=== PATIENT | male | born 1950 | race Caucasian/White ===

== ENCOUNTER 2017-11-14 06:45 | Day surgery (SDC) | END 2017-11-15 17:05 | disposition home or self-care (01) ==

== ENCOUNTER 2018-09-16 08:40 | Day surgery (SDC) | payer OTHER ==
[2018-09-16] VITALS (18 sets, daily range): BP systolic 105–125; BP diastolic 55–76; PULSE 60–78; RESP 11–18; Ht 170.2 cm; Wt 69.2 kg
[~2018-09-16] VITALS: Ht 170.2 cm; Wt 69.2 kg
[~2018-09-16 08:40] MED LIST: APIX5TAB PO; ASPI81TA52 PO; BENA20TA4 PO; CARV25TA79 PO; DIGO125T93 PO; FURO-110 PO; INSU100I33 SC; METF500T24 PO; NAPR-985 PO; NITR0.4T39 SL; NOVO3I SC; OMEP20CA16 PO; SEVOFLURANE 15 MIN ONE; SIMV40TA2 PO
[2018-09-16] MEDS ORDERED: CIPROFLOXACIN 400MG/D5W 200 ML IVPB ONE (09:00)
[2018-09-16] MEDS ORDERED: KETO5DRO22 OP (09:10)
[2018-09-16] MEDS ORDERED: TRAM50TA PO (09:10)
[2018-09-16] MEDS ORDERED: TICA90TA PO (09:10)
[2018-09-16] MEDS ORDERED: LACT10SO5 PO (09:10)
[2018-09-16] MEDS ORDERED: DEXT1DRO7 OP (09:10)
[2018-09-16] MEDS ORDERED: SUCCINYLCHOLINE CHLORIDE 100 MG/5 ML SYG IV ONE (11:35)
[2018-09-16] MEDS ORDERED: ROCURONIUM 50 MG INJ ONE (11:35)
[2018-09-16] MEDS ORDERED: LIDOCAINE 2% (SDV) 5 ML INJ ONE (11:35)
[2018-09-16] MEDS ORDERED: PROPOFOL 20 ML ONE (11:35)
[2018-09-16] MEDS ORDERED: NEOSTIGMINE 3 MG/3 ML SYRINGE ONE ×2 (11:35→11:40)
[2018-09-16] MEDS ORDERED: GLYCOPYRROLATE 0.4 MG INJ ONE ×2 (11:35→11:40)
--- NOTE | 2018-09-16 12:37 | HPN ---
Date/Time of Note Date/Time of Note DATE: 09/16/18 TIME: 12:37 Interval H&P Admission Note Pt. seen H&P reviewed: No system changes REILLY SNIDER Sep 16, 2018 12:37
--- NOTE | 2018-09-16 12:58 | RADRPT ---
Vent Rate: 62 bpm RR Interval: 973 msec MI Interval: 61 msec QRS Duration: 114 msec QT Interval: 463 msec QTC Interval: 469 msec P-R-T Mascot: 0 - -18 - 212 degrees A-V dual-paced complexes w/ some inhibition...other complexes also detected No further analysis attempted due to paced rhythm Electronically Signed By: Markel Avila
--- NOTE | 2018-09-16 12:59 | PREAC ---
Date/Time of Note Date/Time of Note DATE: 09/16/18 TIME: 12:59 Anesthesia Eval and Record Evaluation Time Pre-Procedure Interview DATE: 09/16/18 TIME: 12:59 Age 68 Sex male NPO: 8 hrs Preoperative diagnosis Left kidney stone Planned procedure Cystoscopy, left ureteral stent removal, left retrograde pyelogram, left uret eroscopy with Laser lithotripsy, left ureteral stent insertion Past Medical History Past Medical History: Includes Cardio: HTN, Dyslipidemia, CAD, PTCA/Stent, PPM/AICD Endo: Diabetes Surgery & Anesthesia Issues No known issue Meds Anticoagulation: No Beta Benita within 24 hr: Yes Reported Medications Lactulose* (Lactulose*) 10 Gm/15 Ml Solution, 10 GM PO Q8, ML 09/16/18 Ticagrelor* (Brilinta*) 90 Mg Tablet, 90 MG PO Q12, TAB 09/16/18 Dextran 70/Hypromellose/Pf (ARTIFICIAL TEARS DROPS) 1 Each Droperette, 1 EACH OP TID PRN for DRY EYES 09/16/18 Ketotifen Fumarate (KETOTIFEN FUMARATE) 5 Ml Drops, 1 ML OP QID PRN for ITCHING, BOTTLE 09/16/18 Tramadol Hcl* (Ultram*) 50 Mg Tablet, 50 MG PO Q6H PRN for PAIN, TAB 09/16/18 Insulin Glargine,Hum.rec.anlog (Basaglar Kwikpen U-100) 100 Unit/1 Ml Insuln.pen, 20 UNIT SC QHS, EA 11/14/17 Insulin Aspart* (Novolog Insulin Pen*) 100 Unit/Ml Soln, 10-11 UNIT SC WITH MEALS, EA 11/14/17 Benazepril Hcl* (Benazepril Hcl*) 20 Mg Tablet, 20 MG PO DAILY, #30 TAB 11/14/17 Nitroglycerin* (Nitrostat*) 0.4 Mg Tab.subl, 0.4 MG SL Q5MIN PRN for CHEST PAIN, BOTTLE 11/14/17 Furosemide* (Lasix*) 20 Mg Tablet, 20 MG PO DAILY, TAB 11/14/17 Omeprazole* (Omeprazole*) 20 Mg Capsule.dr, 20 MG PO DAILY, #30 CAP 11/14/17 Digoxin* (Lanoxin*) 0.125 Mg Tablet, 0.125 MG PO DAILY, TAB 11/14/17 Naproxen* (Naprosyn*) 500 Mg Tablet, 500 MG PO BID PRN for PAIN AND/OR INFLAMMATION, TAB 11/14/17 Aspirin (Low Dose Aspirin) 81 Mg Tablet.dr, 81 MG PO DAILY, #30 TAB 11/14/17 Carvedilol* (Carvedilol*) 25 Mg Tablet, 25 MG PO BID, #60 TAB 11/14/17 Metformin Hcl* (Metformin Hcl*) 500 Mg Tablet, 500 MG PO WITH BREAKFAST DINNE, #60 TAB 11/14/17 Discontinued Reported Medications Apixaban* (Eliquis*) 5 Mg Tablet, 5 MG PO BID, TAB 11/14/17 Simvastatin* (Zocor*) 40 Mg Tablet, 40 MG PO QHS, #30 TAB 11/14/17 Meds reviewed: Yes Allergies Coded Allergies: No Known Allergy (Unverified , 09/16/18) Allergies Reviewed: Yes Labs/Studies Labs Reviewed: Reviewed by anesthesiologist test: N/A Pre-procedure Exam Last vitals Vital Signs Date Temp Pulse Resp B/P (MAP) Pulse Ox O2 O2 Flow FiO2 Time Delivery Rate 09/16/18 97.6 68 16 106/55 98 Room Air 08:43 (72) Airway: Adequate mouth opening Mallampati: Mallampati I Teeth: Abnormal (Only a few teeth left) Lung: Normal Heart: Normal ASA Physical Status ASA physical status: 3 Emergency: None Planned Anesthetic General/MAC: ETT Planned Pain Management Parenteral pain med Pre-operative Attestations Prior to commencing anesthesia and surgery, the patient was re-evaluated, there was verification of: *The patient's identity *The results of appropriate recent lab work and preoperative vital signs *The above evaluation not changing prior to induction *Anesthetic plan, risk benefits, alternative and complications discussed with patient/family; questions answered; patient/family understands, accepts and wishes to proceed. CATHY THORPE MD Sep 16, 2018 12:59
[2018-09-16] MEDS ORDERED: IOHEXOL 300MG/ML 30 ML BTL INJ ONE (13:48)
--- NOTE | 2018-09-16 14:21 | PDOCDIS ---
Discharge Instructions DIAGNOSIS Discharge Diagnosis Left kidney stone CONDITION Mckenzie Patient Condition: Kenji Good HOME CARE INSTRUCTIONS: Mckenzie Diet Instructions: Kenji Reduced Calorie ACTIVITY: Mckenzie Activity Restrictions: Kenji Slowly Increase Activity Mckenzie Bathing Restrictions: Kenji Shower FOLLOW UP/APPOINTMENTS Follow-up Plan Call office to make appointment for removal of stent next week REFERRALS Mckenzie Referring Provider: REILLY Stein EVAN Sep 16, 2018 14:21
--- NOTE | 2018-09-16 14:25 | OPR ---
Date/Time of Note Date/Time of Note DATE: 09/16/18 TIME: 14:23 Operative Report Procedure Date: Sep 16, 2018 Preoperative Diagnosis left renal calculi Postoperative Diagnosis same Operation/Procedure Performed exchange left stent, left nephroscopy with endoscopic holmium laser lithotripsy Surgeon maria luisa Caster Operator none Anesthesia Type: general Estimated Blood Loss: none Transfusion none Specimen none Grafts/Implants none Tubes/Drains 22 cm 4.8 f stent Complications none Pt Condition Post Procedure: stable Disposition: PACU Indications stone Procedure Description dict [id number] REILLY SNIDER Sep 16, 2018 14:25
[2018-09-16] MEDS ORDERED: IOHEXOL 300MG/ML 30 ML BTL ONE (14:28)
[2018-09-16] MEDS ORDERED: HYDROmorphONE 1 MG/5 ML IV SYRINGE IV PRN ×2 (15:00)
[2018-09-16] MEDS ORDERED: MEPERIDINE 25 MG INJ IV PRN (15:00)
[2018-09-16] MEDS ORDERED: EPHEDrine SULFATE 50 MG/5 ML SYG IV PRN (15:00)
[2018-09-16] MEDS ORDERED: hydrALAzine 20 MG INJ IV PRN (15:00)
[2018-09-16] MEDS ORDERED: MIDAZOLAM 1 MG/ML 2 ML INJ IV PRN (15:00)
[2018-09-16] MEDS ORDERED: FENTAnyl 50 MCG/ML VIAL IV PRN ×3 (15:00)
[2018-09-16] MEDS ORDERED: ONDANSETRON 4 MG INJ IV PRN (15:00)
[2018-09-16] MEDS ORDERED: METOCLOPRAMIDE 10 MG INJ IV PRN (15:00)
[2018-09-16] MEDS ORDERED: OXYCODONE/ACETAMINOPHEN (5/325) TAB PO PRN ×2 (15:00)
[2018-09-16] MEDS ORDERED: DIPHENHYDRAMINE 50 MG INJ IV PRN (15:00)
[2018-09-16] MEDS ORDERED: LABETALOL HCL 20MG INJ IV PRN (15:00)
[2018-09-16] MEDS: HYDROmorphONE 1 MG/5 ML IV SYRINGE IV PRN ×2 (15:15→15:24)
--- NOTE | 2018-09-16 16:05 | PAC ---
Date/Time of Note Date/Time of Note DATE: 09/16/18 TIME: 16:05 Post-Anesthesia Notes Post-Anesthesia Note Last documented vital signs Vital Signs Date Temp Pulse Resp B/P (MAP) Pulse Ox O2 O2 Flow FiO2 Time Delivery Rate 09/16/18 119/74 97 Room Air 15:39 (89) 09/16/18 12 15:17 09/16/18 62 15:09 09/16/18 98.3 14:37 Activity: WNL Respiratory function: WNL Cardiovascular function: WNL Mental status: Baseline Pain reasonably controlled: Yes Hydration appropriate: Yes Nausea/Vomiting absent: Yes CATHY THORPE MD Sep 16, 2018 16:05
--- NOTE | 2018-09-16 18:46 | OPR ---
DATE OF OPERATION: 09/16/2018 PREOPERATIVE DIAGNOSIS: Left nephrolithiasis. POSTOPERATIVE DIAGNOSIS: Left nephrolithiasis. PROCEDURES: Cystoscopy, removal of left ureteral stent, left endoscopic nephroscopy with endoscopic holmium laser lithotripsy, insertion of left ureteral stent. SURGEON: Slava Zarate MD ANESTHESIA: General. COMPLICATIONS: None. FINDINGS: Stone burden in the left mid pole and left lower pole. COMPLICATIONS: None. DRAINS: A 22 cm 4.8-[place] double-J ureteral stent. PROCEDURE IN DETAILS: The patient was brought into the operating room and placed on the operating ta ble in the supine lithotomy position. He was prepped and draped in the usual fashion after anesthesi a was induced. A timeout was undertaken. Appropriate pressure points were padded. He received preo perative antibiotic therapy and sequential compression devices were applied. A KUB was obtained whic h demonstrated the previously placed left ureteral stent to be in proper anatomical position. There was stone burden in the left mid pole and left lower pole. Utilizing the rigid cystoscope, a cystosc opy was undertaken. No abnormalities of the anterior or posterior urethra could be appreciated. Pro truding from the left ureteral orifice was a left stent with an attached string. The bladder was ins pected in a systematic fashion. No other foreign body could be appreciated. There was no bladder st one or tumor. Thus utilizing the graspers, a stent was brought up to the level of the urethral meatu s, which allowed for wire to be placed up to the level of the upper pole. The stent and string were removed intact without any noted difficulty. A dual lumen catheter was then placed over the wire and a retrograde pyelogram was undertaken demonstrating stone burden in the mid pole and left lower pole . A secondary wire was then placed up to the level of the upper pole which then allowed for the digi inessa Olympus ureteroscope was easily inserted into the renal pelvis. One of the wires was removed and the secondary wire was maintained throughout the entire case as a safety guidewire. The kidney was then evaluated in a systematic fashion. The upper pole was within normal limits without any noted st one burden within the renal pelvis. Erythema could be appreciated in the mid pole. A stone was iden tified and utilizing a 272 micron holmium fiber with a setting of 0.8 joules and 8 Hz. The stone was easily fragmented. No further stone burden could be appreciated. In the lower pole, 2 calyces coul d be appreciated in the most lower pole along the infundibulum was noted with erythema and in the inf erior portion of this, conglomerate stone burden could be appreciated. With gentle manipulation, the ureteroscope was inserted into the most inferior aspect of the stone where endoscopic holmium laser lithotripsy was continued until no further stone burden could be appreciated. The stone was associat ed with complex of clot and debris consistent with previous surgery. A total of 232 joules were util ized at which point no further stone burden could be appreciated. Once again, the entire collecting system including the upper mid and lower pole as well as renal pelvis were evaluated with no further stone burden being appreciated. The ureteroscope was removed under direct vision in a retrograde fas hion and overlying the wire, a 22 cm 4.8-[place] double-J ureteral stent was inserted in the proximal aspect of coil within the renal pelvis and the distal aspect of coil in the bladder. Attached the di stal end was a pursestring. Proper positioning was confirmed with direct vision fluoroscopy and a KU B. His bladder was emptied and transferred to recovery room in stable condition. He will follow up in the office next week for cystoscopy and stent removal. Importance of timely removal of stent in l ess than 3 months has been explained to the patient on multiple occasions to avoid encrustation compl ications. He tolerated the procedure well and will be discharged home on [place] 5/325 one tab p.o. q. 6 hours p.r.n., dispense #25 and Pyridium 100 mg p.o. t.i.d. p.r.n., dispense #30, one refill. Dictated By: SLAVA VILLAFUERTE/NTS Conf#: [id number] DID#: [id number]
== END 2018-09-16 17:00 | disposition home or self-care (01) ==
LOC: SDS 08:40
PROVIDERS: ATTEND Urology
DX: N20.0 Calculus of kidney (principal); I10 Essential (primary) hypertension; I25.10 Atherosclerotic heart disease of native coronary artery without angina pectoris; E11.9 Type 2 diabetes mellitus without complications; E78.5 Hyperlipidemia, unspecified
CPT/HCPCS: 52356; 74430; 82962; 93005; C2617; J0744; J1170; Q9967; J2710

== ENCOUNTER 2018-09-26 16:10 | Inpatient (IN) | payer OTHER ==
[~2018-09-26] VITALS: Ht 170.2 cm; Wt 67.5 kg
[~2018-09-26 16:10] MED LIST changes: -APIX5TAB PO; +DEXT1DRO7 OP; +KETO5DRO22 OP; +LACT10SO5 PO; -SEVOFLURANE 15 MIN ONE; -SIMV40TA2 PO; +TICA90TA PO; +TRAM50TA PO
--- NOTE | 2018-09-26 19:46 | ERD ---
ER Documentation Chief Complaint Chief Complaint pacemaker battery needs to be replaced HPI 68-year-old gentleman history of hypertension, coronary disease, pacemaker and defibrillator who presents to the emergency room with a vibrating sensation in his pacemaker. Patient denies being shocked. This was noted in triage but I believe this was a language barrier misunderstanding. He states this was not a defibrillation but only a vibration. Occasionally is having some diaphoresis and nausea with these events. Patient denies any chest pressure, no pleuritic pain no fevers or chills. ROS All systems reviewed and are negative except as per history of present illness. Medications Home Meds Reported Medications Lactulose* (Lactulose*) 10 Gm/15 Ml Solution, 10 GM PO Q8, ML 09/16/18 Ticagrelor* (Brilinta*) 90 Mg Tablet, 90 MG PO Q12, TAB 09/16/18 Dextran 70/Hypromellose/Pf (ARTIFICIAL TEARS DROPS) 1 Each Droperette, 1 EACH OP TID PRN for DRY EYES 09/16/18 Ketotifen Fumarate (KETOTIFEN FUMARATE) 5 Ml Drops, 1 ML OP QID PRN for ITCHING, BOTTLE 09/16/18 Tramadol Hcl* (Ultram*) 50 Mg Tablet, 50 MG PO Q6H PRN for PAIN, TAB 09/16/18 Insulin Glargine,Hum.rec.anlog (Basaglar Kwikpen U-100) 100 Unit/1 Ml Insuln.pen, 20 UNIT SC QHS, EA 11/14/17 Insulin Aspart* (Novolog Insulin Pen*) 100 Unit/Ml Soln, 10-11 UNIT SC WITH MEALS, EA 11/14/17 Benazepril Hcl* (Benazepril Hcl*) 20 Mg Tablet, 20 MG PO DAILY, #30 TAB 11/14/17 Nitroglycerin* (Nitrostat*) 0.4 Mg Tab.subl, 0.4 MG SL Q5MIN PRN for CHEST PAIN, BOTTLE 11/14/17 Furosemide* (Lasix*) 20 Mg Tablet, 20 MG PO DAILY, TAB 11/14/17 Omeprazole* (Omeprazole*) 20 Mg Capsule.dr, 20 MG PO DAILY, #30 CAP 11/14/17 Digoxin* (Lanoxin*) 0.125 Mg Tablet, 0.125 MG PO DAILY, TAB 11/14/17 Naproxen* (Naprosyn*) 500 Mg Tablet, 500 MG PO BID PRN for PAIN AND/OR INFLAMMATION, TAB 11/14/17 Aspirin (Low Dose Aspirin) 81 Mg Tablet.dr, 81 MG PO DAILY, #30 TAB 11/14/17 Carvedilol* (Carvedilol*) 25 Mg Tablet, 25 MG PO BID, #60 TAB 11/14/17 Metformin Hcl* (Metformin Hcl*) 500 Mg Tablet, 500 MG PO WITH BREAKFAST DINNE, #60 TAB 11/14/17 Allergies Allergies: Coded Allergies: No Known Allergy (Unverified , 09/26/18) PMhx/Soc History of Surgery: Yes (AICD PLACEMENT, CARDIAC STENTS X3, URETERAL STENTS) Anesthesia Reaction: No Hx Neurological Disorder: No Hx Respiratory Disorders: No Hx Cardiac Disorders: Yes (HTN, AK, HYPERLIPIDEMIA) Hx Psychiatric Problems: No Hx Miscellaneous Medical Probl: Yes (DM) Hx Alcohol Use: No Hx Substance Use: No Hx Tobacco Use: No Smoking Status: Never smoker FmHx Family History: No diabetes Physical Exam Vitals Vital Signs Date Temp Pulse Resp B/P (MAP) Pulse Ox O2 O2 Flow FiO2 Time Delivery Rate 09/26/18 98.6 66 18 119/69 99 Nasal 2.0 21:50 (86) Cannula 09/26/18 98.6 66 16 128/66 98 Nasal 2.0 20:55 (86) Cannula 09/26/18 Nasal 2 19:00 Cannula 09/26/18 66 16 141/73 99 Nasal 2.0 19:00 (95) Cannula 09/26/18 98.6 82 17 119/63 100 16:27 (81) Physical Exam General: Well developed, well nourished, no acute distress Head: Normocephalic, atraumatic. Eyes: Pupils equally reactive, EOM intact ENT: Moist mucous membranes Neck: Supple, no lymphadenopathy Respiratory: Lungs clear bilaterally, no distress Cardiovascular: RRR, no murmurs, rubs, or gallops Abdominal: Soft, non-tender, non-distended, no peritoneal signs : Deferred MSK: No edema, no unilateral swelling, 5/5 strength Neurologic: Alert and oriented, moving all extremities, normal speech, no focal weakness, no cerebellar signs Skin: No rash Psych: Normal mood Result Diagram: 09/26/18192009/26/181920 Results 24 hrs Laboratory Tests Test 09/26/18 19:21 White Blood Count 8.1 10^3/ul Red Blood Count 4.03 10^6/ul Hemoglobin 12.1 g/dl Hematocrit 36.8 % Mean Corpuscular Volume 91.3 fl Mean Corpuscular Hemoglobin 30.0 pg Mean Corpuscular Hemoglobin Concent 32.9 g/dl Red Cell Distribution Width 13.6 % Platelet Count 219 10^3/UL Mean Platelet Volume 9.9 fl Immature Granulocytes % 0.400 % Neutrophils % 51.4 % Lymphocytes % 30.1 % Monocytes % 9.4 % Eosinophils % 7.8 % Basophils % 0.9 % Nucleated Red Blood Cells % 0.0 /100WBC Immature Granulocytes # 0.030 10^3/ul Neutrophils # 4.1 10^3/ul Lymphocytes # 2.4 10^3/ul Monocytes # 0.8 10^3/ul Eosinophils # 0.6 10^3/ul Basophils # 0.1 10^3/ul Nucleated Red Blood Cells # 0.0 10^3/ul Prothrombin Time 13.3 Sec Prothrombin Time Ratio 1.0 INR International Normalized Ratio 1.00 Activated Partial Thromboplast Time 32.3 Sec Sodium Level 141 mmol/L Potassium Level 4.3 mmol/L Chloride Level 107 mmol/L Carbon Dioxide Level 26 mmol/L Anion Gap 8 Blood Urea Nitrogen 20 mg/dl Creatinine 1.13 mg/dl Est Glomerular Filtrat Rate mL/min > 60 mL/min Glucose Level 140 mg/dl Calcium Level 10.1 mg/dl Magnesium Level 2.0 mg/dl Troponin I < 0.012 ng/ml Current Medications Medications Dose Sig/Gato Start Time Status Last (Trade) Ordered Route PRN Stop Time Admin Dose Reason Admin Aspirin 81 mg ONCE ONCE 09/26/18 DC (Aspirin) PO 21:30 09/26/18 21:31 Ondansetron 4 mg ER BRIDGE 09/26/18 HCl (Zofran PRN IV 21:30 Inj) NAUSEA/VOMITI 09/27/18 21:29 NG 650 mg ER BRIDGE 09/26/18 Acetaminophen PRN PO 21:30 (Tylenol .MILD PAIN 09/27/18 21:29 Tab) 1-3 OR TEMP IV Flush 3 ml PER 09/26/18 (NS 3 ml) PROTOCOL IV 22:00 Ondansetron 4 mg Q6H PRN 09/26/18 HCl (Zofran IV 22:00 Inj) NAUSEA/VOMITI NG Morphine 2 mg Q4H PRN 09/26/18 Sulfate IV .PAIN 22:00 (morphine) 7-10 Famotidine 20 mg Q12 IV 09/27/18 (Pepcid Iv) 09:00 Enoxaparin 30 mg DAILY SC 09/27/18 Sodium 09:00 (Lovenox) Procedures/MDM EKG, MONITORS, & DIAGNOSTIC IMAGING: EKG: I reviewed and interpreted a 12-lead EKG. Rhythm: Paced rhythm ST Changes: No contiguous ST segment elevations T waves: No contiguous T wave inversions Impression: [No evidence of acute cardiac ischemia] Repeat EKG: EKG: I reviewed and interpreted a 12-lead EKG. Rhythm: Paced rhythm ST Changes: No contiguous ST segment elevations T waves: No contiguous T wave inversions Impression: [No evidence of acute cardiac ischemia] Chest x-ray: I reviewed and interpreted a 1 view of the chest Mediastinum: No enlargement Cardiac silhouette: No cardiomegaly Airspace: Clear lung devi bilaterally without evidence of pneumothorax Bones: No evidence of fracture PROCEDURES: [None] LAB INTERPRETATION: * Negative troponin MEDICAL DECISION MAKING: The patient's history, physical exam and clinical presentation is concerning for possible cardiac arrhythmia. The patient requires pacemaker interrogation, possibly battery change. No active chest pain. Based on the patient's clinical exam and history and risk factors, I have a much lower clinical concern for pulmonary embolism, acute aortic dissection, pneumothorax, pneumonia, cardiac tamponade I have reached out to the patient's deep sea diver Dr. Waldron. I have reached out to [facility]. Given the patient's description of diaphoresis and nausea with this I believe hospitalization for observation would be appropriate. ER COURSE: * Aspirin provided. * Dr. Schneider has called back and agrees with admission. CONSULTATION: [employer] as documented above DISPOSITION PLAN: Accepting care team and consultations: I discussed the current laboratory data, diagnostic imaging and emergency care provided. Admitting team: Dr. Harrell Admitting team indication: Insurance directed Departure Diagnosis: Primary Impression: Palpitations Condition: Stable ZION WILKINSON MD Sep 26, 2018 19:46
[2018-09-26] MEDS ORDERED: ASPIRIN 81 MG TAB PO ONE (21:30)
[2018-09-26] MEDS ORDERED: ACETAMINOPHEN 325 MG TAB PO PRN (21:30)
[2018-09-26] MEDS ORDERED: ONDANSETRON 4 MG INJ IV PRN ×2 (21:30→22:00)
[2018-09-26] MEDS ORDERED: morphine 2 MG INJ IV PRN (22:00)
[2018-09-26] MEDS ORDERED: NACL 0.9% 3 ML SYG IV SCH (22:00)
[2018-09-26 22:15] VITALS: Ht 170.2 cm; Wt 67.5 kg
[2018-09-26 22:25] VITALS: PULSE 60
[2018-09-26 23:33] VITALS: BP 134/69; PULSE 82; RESP 18
[2018-09-27] VITALS (12 sets, daily range): BP systolic 108–117; BP diastolic 56–65; PULSE 55–78; RESP 17–20
[2018-09-27] MEDS: FAMOTIDINE 20 MG INJ IV SCH ×2 (10:05→20:38)
[2018-09-27] MEDS: ENOXAPARIN 30 MG/0.3 ML SYG SC SCH (10:10)
--- NOTE | 2018-09-27 11:04 | CONS ---
Consultation Date/Type/Reason Admit Date/Time Sep 26, 2018 at 21:18 Type of Consult Cardiology Date/Time of Note DATE: 09/27/18 TIME: 11:03 Hx of Present Illness 68 yo - my office pt - has [facility] BiV ICD - will need gen change - EL device - will try to schedule early next week when anesthesia available - thank you # [id number] Past Medical History Home Meds Reported Medications Lactulose* (Lactulose*) 10 Gm/15 Ml Solution, 10 GM PO Q8, ML 09/16/18 Ticagrelor* (Brilinta*) 90 Mg Tablet, 90 MG PO Q12, TAB 09/16/18 Dextran 70/Hypromellose/Pf (ARTIFICIAL TEARS DROPS) 1 Each Droperette, 1 EACH OP TID PRN for DRY EYES 09/16/18 Ketotifen Fumarate (KETOTIFEN FUMARATE) 5 Ml Drops, 1 ML OP QID PRN for ITCHING, BOTTLE 09/16/18 Tramadol Hcl* (Ultram*) 50 Mg Tablet, 50 MG PO Q6H PRN for PAIN, TAB 09/16/18 Insulin Glargine,Hum.rec.anlog (Basaglar Kwikpen U-100) 100 Unit/1 Ml Insuln.pen, 20 UNIT SC QHS, EA 11/14/17 Insulin Aspart* (Novolog Insulin Pen*) 100 Unit/Ml Soln, 10-11 UNIT SC WITH MEALS, EA 11/14/17 Benazepril Hcl* (Benazepril Hcl*) 20 Mg Tablet, 20 MG PO DAILY, #30 TAB 11/14/17 Nitroglycerin* (Nitrostat*) 0.4 Mg Tab.subl, 0.4 MG SL Q5MIN PRN for CHEST PAIN, BOTTLE 11/14/17 Furosemide* (Lasix*) 20 Mg Tablet, 20 MG PO DAILY, TAB 11/14/17 Omeprazole* (Omeprazole*) 20 Mg Capsule.dr, 20 MG PO DAILY, #30 CAP 11/14/17 Digoxin* (Lanoxin*) 0.125 Mg Tablet, 0.125 MG PO DAILY, TAB 11/14/17 Naproxen* (Naprosyn*) 500 Mg Tablet, 500 MG PO BID PRN for PAIN AND/OR INFLAMMATION, TAB 11/14/17 Aspirin (Low Dose Aspirin) 81 Mg Tablet.dr, 81 MG PO DAILY, #30 TAB 11/14/17 Carvedilol* (Carvedilol*) 25 Mg Tablet, 25 MG PO BID, #60 TAB 11/14/17 Metformin Hcl* (Metformin Hcl*) 500 Mg Tablet, 500 MG PO WITH BREAKFAST DINNE, #60 TAB 11/14/17 Medications Current Medications Ondansetron HCl (Zofran Inj) 4 mg ER BRIDGE PRN IV NAUSEA/VOMITING; Start 09/26/18 at 21:30; Stop 09/27/18 at 21:29 Acetaminophen (Tylenol Tab) 650 mg ER BRIDGE PRN PO .MILD PAIN 1-3 OR TEMP; Start 09/26/18 at 21:30; Stop 09/27/18 at 21:29 IV Flush (NS 3 ml) 3 ml PER PROTOCOL IV ; Start 09/26/18 at 22:00 Ondansetron HCl (Zofran Inj) 4 mg Q6H PRN IV NAUSEA/VOMITING; Start 09/26/18 at 22:00 Morphine Sulfate (morphine) 2 mg Q4H PRN IV .PAIN 7-10; Start 09/26/18 at 22:00 Famotidine (Pepcid Iv) 20 mg Q12 IV Last administered on 09/27/18at 10:05; Admin Dose 20 MG; Start 09/27/18 at 09:00 Enoxaparin Sodium (Lovenox) 30 mg DAILY SC Last administered on 09/27/18at 10:10; Admin Dose 30 MG; Start 09/27/18 at 09:00 Allergies: Coded Allergies: No Known Allergy (Unverified , 09/26/18) Social History Smoking Status: Never smoker Exam/Review of Systems Vital Signs Vitals Vital Signs Date Temp Pulse Resp B/P (MAP) Pulse Ox O2 O2 Flow FiO2 Time Delivery Rate 09/27/18 98.8 67 20 108/60 98 08:08 (76) 09/26/18 Nasal 2.0 21:50 Cannula Intake and Output 09/26/18 09/26/18 09/27/18 1515:00 23:00 07:00 IntakeIntake Total 450 ml BalanceBalance 450 ml Labs Result Diagram: 09/26/18192009/26/181920 Results 24hrs Laboratory Tests Test 09/26/18 19:21 09/26/18 22:29 09/27/18 00:48 White Blood Count 8.1 Red Blood Count 4.03 L Hemoglobin 12.1 L Hematocrit 36.8 L Mean Corpuscular Volume 91.3 Mean Corpuscular Hemoglobin 30.0 Mean Corpuscular Hemoglobin Concent 32.9 Red Cell Distribution Width 13.6 Platelet Count 219 Mean Platelet Volume 9.9 Immature Granulocytes % 0.400 Neutrophils % 51.4 Lymphocytes % 30.1 Monocytes % 9.4 Eosinophils % 7.8 H Basophils % 0.9 Nucleated Red Blood Cells % 0.0 Immature Granulocytes # 0.030 Neutrophils # 4.1 Lymphocytes # 2.4 Monocytes # 0.8 Eosinophils # 0.6 H Basophils # 0.1 Nucleated Red Blood Cells # 0.0 Prothrombin Time 13.3 Prothrombin Time Ratio 1.0 INR International Normalized Ratio 1.00 Activated Partial Thromboplast Time 32.3 Sodium Level 141 Potassium Level 4.3 Chloride Level 107 Carbon Dioxide Level 26 Anion Gap 8 Blood Urea Nitrogen 20 Creatinine 1.13 Est Glomerular Filtrat Rate mL/min > 60 Glucose Level 140 Calcium Level 10.1 Magnesium Level 2.0 Troponin I < 0.012 < 0.012 Bedside Glucose 135 Creatine Kinase 58 Creatine Kinase Index 1.7 Creatinine Kinase MB (Mass) 1.00 Medications Medications Current Medications Ondansetron HCl (Zofran Inj) 4 mg ER BRIDGE PRN IV NAUSEA/VOMITING; Start 09/26/18 at 21:30; Stop 09/27/18 at 21:29 Acetaminophen (Tylenol Tab) 650 mg ER BRIDGE PRN PO .MILD PAIN 1-3 OR TEMP; Start 09/26/18 at 21:30; Stop 09/27/18 at 21:29 IV Flush (NS 3 ml) 3 ml PER PROTOCOL IV ; Start 09/26/18 at 22:00 Ondansetron HCl (Zofran Inj) 4 mg Q6H PRN IV NAUSEA/VOMITING; Start 09/26/18 at 22:00 Morphine Sulfate (morphine) 2 mg Q4H PRN IV .PAIN 7-10; Start 09/26/18 at 22:00 Famotidine (Pepcid Iv) 20 mg Q12 IV Last administered on 09/27/18at 10:05; Admin Dose 20 MG; Start 09/27/18 at 09:00 Enoxaparin Sodium (Lovenox) 30 mg DAILY SC Last administered on 09/27/18at 10:10; Admin Dose 30 MG; Start 09/27/18 at 09:00 VANE OSUNA MD Sep 27, 2018 11:04
[2018-09-27] MEDS ORDERED: DEXTROSE 50% 50 ML SYRINGE IV PRN ×2 (12:00)
[2018-09-27] MEDS ORDERED: GLUCOSE GEL 15 GRAM TUBE PO PRN ×2 (12:00)
[2018-09-27] MEDS ORDERED: GLUCAGON 1 MG INJ IM PRN (12:00)
[2018-09-27] MEDS ORDERED: GLUCOSE GEL 15 GRAM TUBE BUCCAL PRN (12:00)
--- NOTE | 2018-09-27 12:16 | HP ---
Date/Time of Note Date/Time of Note DATE: 09/27/18 TIME: 12:14 Assessment/Plan VTE Pro[place]axis [place] [facility] [place]: 3 [place]CD [place] [facility] [place] No SCD contraindicated: other Pharmacological prophylaxis: LMWH Lines/Catheters IV [facility]ter Type (from [facility] Saline Lock Urinary Cath still in place: No Assessment/Plan Hospital Course 1) arrhythmia - pacemaker to be changed per cardiology 2) diabetes - monitor blood sugar Result Diagram: 09/27/18 1038 09/27/18 1038 Results 24hrs Laboratory Tests Test 09/26/18 19:21 09/26/18 22:29 09/27/18 00:48 09/27/18 10:38 White Blood Count 8.1 6.8 Red Blood Count 4.03 L 3.90 L Hemoglobin 12.1 L 11.8 L Hematocrit 36.8 L 35.8 L Mean Corpuscular 91.3 91.8 Volume Mean Corpuscular 30.0 30.3 Hemoglobin Mean Corpuscular 32.9 33.0 Hemoglobin Concent Red Cell 13.6 13.8 Distribution Width Platelet Count 219 198 Mean Platelet Volume 9.9 10.4 Immature 0.400 0.300 Granulocytes % Neutrophils % 51.4 52.9 Lymphocytes % 30.1 31.1 Monocytes % 9.4 9.2 Eosinophils % 7.8 H 5.6 Basophils % 0.9 0.9 Nucleated Red Blood 0.0 0.0 Cells % Immature 0.030 0.020 Granulocytes # Neutrophils # 4.1 3.6 Lymphocytes # 2.4 2.1 Monocytes # 0.8 0.6 Eosinophils # 0.6 H 0.4 Basophils # 0.1 0.1 Nucleated Red Blood 0.0 0.0 Cells # Prothrombin Time 13.3 Prothrombin Time 1.0 Ratio INR International 1.00 Normalized Ratio Activated 32.3 Partial Thromboplast Time Sodium Level 141 140 Potassium Level 4.3 4.9 Chloride Level 107 103 Carbon Dioxide Level 26 28 Anion Gap 8 9 Blood Urea Nitrogen 20 18 Creatinine 1.13 0.77 Est Glomerular > 60 > 60 Filtrat Rate mL/min Glucose Level 140 147 Calcium Level 10.1 9.6 Magnesium Level 2.0 Troponin I < 0.012 < 0.012 < 0.012 Bedside Glucose 135 Creatine Kinase 58 48 Creatine Kinase 1.7 1.3 Index Creatinine Kinase MB 1.00 0.64 (Mass) Hemoglobin A1c 7.3 H Total Bilirubin 0.5 Direct Bilirubin 0.00 Indirect Bilirubin 0.5 Aspartate Amino 21 Transf (AST/SGOT) Alanine 29 Aminotransferase (AL T/SGPT) Alkaline Phosphatase 73 Total Protein 6.6 Albumin 3.9 Globulin 2.70 Albumin/Globulin 1.44 Ratio Test 09/27/18 11:43 Bedside Glucose 154 HPI/ROS Admit Date/Time Admit Date/Time Sep 26, 2018 at 21:18 Hx of Present Illness Patient with hypertension, diabetes, cardiac arrhythmia s/p pacemaker placement is here because of vibrations from pacemaker. He is admitted for further evaluation. PMH/Family/Social Past Medical History Medical History: coronary artery disease, diabetes, high cholesterol, hypert ension Medications Current Medications Ondansetron HCl (Zofran Inj) 4 mg ER BRIDGE PRN IV NAUSEA/VOMITING; Start 09/26/18 at 21:30; Stop 09/27/18 at 21:29 Acetaminophen (Tylenol Tab) 650 mg ER BRIDGE PRN PO .MILD PAIN 1-3 OR TEMP; Start 09/26/18 at 21:30; Stop 09/27/18 at 21:29 IV Flush (NS 3 ml) 3 ml PER PROTOCOL IV ; Start 09/26/18 at 22:00 Ondansetron HCl (Zofran Inj) 4 mg Q6H PRN IV NAUSEA/VOMITING; Start 09/26/18 at 22:00 Morphine Sulfate (morphine) 2 mg Q4H PRN IV .PAIN 7-10; Start 09/26/18 at 22:00 Famotidine (Pepcid Iv) 20 mg Q12 IV Last administered on 09/27/18at 10:05; Admin Dose 20 MG; Start 09/27/18 at 09:00 Enoxaparin Sodium (Lovenox) 30 mg DAILY SC Last administered on 09/27/18at 10:10; Admin Dose 30 MG; Start 09/27/18 at 09:00 Coded Allergies: No Known Allergy (Unverified , 09/26/18) Family History Significant Family History: no pertinent family hx Social History Smoking Status: Never smoker Exam/Review of Systems Vital Signs Vitals Vital Signs Date Temp Pulse Resp B/P (MAP) Pulse Ox O2 O2 Flow FiO2 Time Delivery Rate 09/27/18 98.2 55 20 109/61 97 11:14 (77) 4/20/19 Nasal 2.0 21:50 Cannula Intake and Output 09/26/18 09/26/18 09/27/18 1515:00 23:00 07:00 IntakeIntake Total 450 ml BalanceBalance 450 ml Exam Constitutional: well developed Head: normocephalic, atraumatic Neck: supple Respiratory: clear to auscultation Cardiovascular: regular rate and rhythm Gastrointestinal: soft, non-tender Extremities: normal pulses TENISHA TAMAYO Sep 27, 2018 12:16
[2018-09-27] MEDS ORDERED: NAPROXEN 500 MG TAB PO PRN (12:30)
[2018-09-27] MEDS ORDERED: NITROGLYCERIN (SL) 0.4 MG TAB SL PRN (12:30)
[2018-09-27] MEDS ORDERED: traMADol 50 MG TAB PO PRN (12:30)
--- NOTE | 2018-09-27 13:31 | CONS ---
DATE OF ADMISSION: 09/26/2018 DATE OF CONSULTATION: 09/27/2018 TYPE OF CONSULTATION: Cardiology. REFERRING PHYSICIAN: Ekaterina Tamayo MD REASON FOR EVALUATION: End of life on ICD. HISTORY OF PRESENT ILLNESS: Mr. rC is a 68-year-old gentleman with history of hypertension, dysl ipidemia, history of cardiomyopathy, history of biventricular ICD implanted several years ago who is my office patient, who comes in for evaluation of his ICD. His ICD has known end of life. He was fowler pposed to have scheduled appointment for ICD replacement, but the patient represented to the hospital now and will have to change his ICD during this admission. Currently, the patient is hemodynamicall y stable condition. His ICD is with biventricular pacing. Based on laboratory data, it does not wilner ear that he ruled in for acute myocardial infarction. For now, conservative therapy is expected. We will facilitate ICD change hopefully early next week once schedule is available. There is a possibi lity the patient might need a temporary pacemaker. He is aware of the need of ICD change, so we can facilitate it shortly. PAST MEDICAL HISTORY: 1. Hypertension. 2. Dyslipidemia. 3. History of cardiomyopathy. 4. History of biventricular ICD. 5. History of recent surgery. ALLERGIES: NO KNOWN DRUG ALLERGIES. SOCIAL HISTORY: The patient does not smoke, does not drink, does not use drugs. FAMILY HISTORY: Negative for sudden cardiac , premature coronary artery disease. MEDICATIONS: 1. Famotidine 20 mg daily. 2. Enoxaparin. 3. Ondansetron. 4. Morphine sulfate. 5. Aspirin, which was held for unclear reason. REVIEW OF SYSTEMS: CONSTITUTIONAL: No fevers, no chills. Blunting of the ICD. HEENT: No changes in vision or hearing. CARDIAC: Chest pain reported now. RESPIRATORY: Short of breath, chronic. GASTROINTESTINAL: No nausea, vomiting, diarrhea, constipation. GENITOURINARY: No dysuria or hematuria. NEUROLOGIC: No focal deficits. HEMATOLOGIC: No easy bruising. PSYCHIATRIC: No history of psychiatric illness. PHYSICAL EXAMINATION: VITAL SIGNS: Temperature is 98.8, heart rate 67, blood pressure 108/60. GENERAL: He is a thin gentleman in no acute distress, alert and oriented x3, aware of his condition. HEENT: Head is normocephalic, atraumatic. Eyes are anicteric. NECK: Supple. JVD is 6 to 7 cm. There is no lymphadenopathy. HEART: Regular, soft holosystolic murmur. PMI is minimally displaced. ICD site appears ____ at the base. ABDOMEN: Distended. Bowel sounds are present. No hepatosplenomegaly. GENITOURINARY: Intact. EXTREMITIES: Show cyanosis, clubbing or edema. LABORATORY DATA: Sodium 141, potassium 4.3, BUN is 5, creatinine 1.1. ____ 10.1. Troponin is negat ren at 0.012. INR is 1.0. His white blood cell count 8.1, hemoglobin 12.1, platelets 219. ASSESSMENT AND PLAN: 1. End of life ICD. The patient with end of life ICD. Generally, battery change is expected. The patient was supposed to have it done as an outpatient, but presented here now. I think it is safe to do the battery change while the patient is here in the hospital. We will facilitate it shortly and we will hopefully schedule for early next week. 2. Hypertension. Blood pressure is well controlled. Continue to adjust medications as needed. 3. History of cardiomyopathy. The patient is not in congestive heart failure on my examination. We will continue to monitor. We will see if we can interrogate his ICD at this stage to see if he has an underlying rhythm. 4. Anemia. Hemoglobin is fairly stable. No evidence of bleeding now. 5. Chest pain. The patient did not rule in for ischemia. Troponins are negative. Medical followup to follow. Dictated By: VANE OSUNA MD ML/NTS Conf#: [id number] DID#: [id number] CC: EKATERINA TAMAYO MD;*EndCC*
[2018-09-27] MEDS: LACTULOSE 30ML CUP PO SCH ×2 (14:12→21:05)
[2018-09-27] MEDS: DIGOXIN 0.125 MG TAB PO SCH (14:13)
[2018-09-27] MEDS: metFORMIN 500 MG TAB PO SCH (17:22)
[2018-09-27] MEDS: INSULIN ASPART [NOVOLOG] 3 ML PEN SC SCH (17:25)
[2018-09-27] MEDS: ACCU-CHEK XX SCH ×2 (17:25→21:00)
[2018-09-27] MEDS ORDERED: INSULIN GLARGINE [LANTus] (100 UNITS/ML) SYG SC SCH ×2 (21:00)
[2018-09-27] MEDS ORDERED: INSULIN GLARGINE [LANtus] 3 ML PEN SC SCH (21:00)
[2018-09-27] MEDS: TICAGRELOR 90 MG TABLET PO SCH (21:22)
[2018-09-27] MEDS: INSULIN GLARGINE [LANTus] (100 UNITS/ML) SYG SC SCH (21:22)
[2018-09-28] VITALS (10 sets, daily range): BP systolic 100–121; BP diastolic 56–77; PULSE 60–82; RESP 18–20
[2018-09-28] MEDS: LACTULOSE 30ML CUP PO SCH ×3 (05:49→20:31)
[2018-09-28] MEDS: ACCU-CHEK XX SCH ×4 (07:12→20:30)
[2018-09-28] MEDS: INSULIN ASPART [NOVOLOG] 3 ML PEN SC SCH ×3 (08:00→17:27)
[2018-09-28] MEDS: ASPIRIN (EC) 81 MG TAB PO SCH (08:25)
[2018-09-28] MEDS: FAMOTIDINE 20 MG INJ IV SCH ×2 (08:25→20:29)
[2018-09-28] MEDS: FUROSEMIDE 20 MG TAB PO SCH (08:26)
[2018-09-28] MEDS: BENAZEPRIL 20 MG TAB PO SCH (08:27)
[2018-09-28] MEDS: TICAGRELOR 90 MG TABLET PO SCH ×2 (08:37→21:10)
[2018-09-28] MEDS: ENOXAPARIN 30 MG/0.3 ML SYG SC SCH (08:37)
[2018-09-28] MEDS: metFORMIN 500 MG TAB PO SCH ×2 (08:38→16:42)
--- NOTE | 2018-09-28 10:51 | CONS ---
Assessment/Plan Assessment/Plan Hospital Course (Demo Recall) IMP: 1. ICD and EOL=awaiting generator change by primary EP DR conn. Tenatively scheduled for tomorrow 2.cardiomyopathy with low EF 3.HTN 4.chest pain-resolved. Neg trops 5.DM Recc: -Tele -serial ecg's -Continue ACEI/BB -Continue brilinta/asa -NPO after MN in preparation -check echo to assess EF Consultation Date/Type/Reason Admit Date/Time Sep 26, 2018 at 21:18 Initial Consult Date Type of Consult Cardiology Reason for Consultation ICD/cardiomyopathy Date/Time of Note DATE: 09/28/18 TIME: 10:43 Exam/Review of Systems Vital Signs Vitals Vital Signs Date Temp Pulse Resp B/P (MAP) Pulse Ox O2 O2 Flow FiO2 Time Delivery Rate 09/28/18 78 10:11 09/28/18 98.1 20 119/63 98 07:25 (81) 09/26/18 Nasal 2.0 21:50 Cannula Intake and Output 09/27/18 09/27/18 09/28/18 1515:00 23:00 07:00 IntakeIntake Total 800 ml 500 ml BalanceBalance 800 ml 500 ml Exam Exam Review of Systems: CONSTITUTIONAL: No fevers, chills. PULMONARY: No sob CARDIOVASCULAR: No chest pain/palpitations GASTROINTESTINAL: No nausea/vomiting. GENITOURINARY: No hematuria/dysuria. MUSCULOSKELETAL: No myagias/arthalgias. PSYCHIATRIC: The patient denies depression. NEUROLOGIC: No weakness Constitutional: alert, oriented Psych: no complaints Head: normocephalic ENMT: mucosa pink and moist Neck: supple, jvd (9 cm water) Respiratory: clear to auscultation Cardiovascular: regular rate and rhythm Gastrointestinal: soft, non-tender Musculoskeletal: muscle tone (normal) Extremities: edema (none) Neurological: other (No focal deficits) Labs Result Diagram: 09/27/18 1038 09/27/18 1038 Results 24hrs Laboratory Tests Test 09/27/18 11:43 09/27/18 17:17 09/27/18 21:01 09/28/18 07:12 Bedside Glucose 154 198 160 115 Medications Medications Current Medications IV Flush (NS 3 ml) 3 ml PER PROTOCOL IV ; Start 09/26/18 at 22:00 Ondansetron HCl (Zofran Inj) 4 mg Q6H PRN IV NAUSEA/VOMITING; Start 09/26/18 at 22:00 Morphine Sulfate (morphine) 2 mg Q4H PRN IV .PAIN 7-10; Start 09/26/18 at 22:00 Famotidine (Pepcid Iv) 20 mg Q12 IV Last administered on 09/28/18 08:25; Admin Dose 20 MG; Start 09/27/18 at 09:00 Enoxaparin Sodium (Lovenox) 30 mg DAILY SC Last administered on 09/28/18 08:37; Admin Dose 30 MG; Start 09/27/18 at 09:00 Aspirin (Halfprin) 81 mg DAILY PO Last administered on 09/28/18 08:25; Admin Dose 81 MG; Start 09/28/18 at 09:00 Benazepril HCl (Lotensin) 20 mg DAILY PO Last administered on 09/28/18 08:27; Admin Dose 20 MG; Start 09/28/18 at 09:00 Carvedilol (Coreg) 25 mg BID PO Last administered on 09/28/18 08:27; Admin Dose 25 MG; Start 09/27/18 at 21:00 Digoxin (Digoxin) 0.125 mg DAILY@1300 PO Last administered on 09/27/18 14:13; Admin Dose 0.125 MG; Start 09/27/18 at 13:00 Furosemide (Lasix) 20 mg DAILY PO Last administered on 09/28/18 08:26; Admin Dose 20 MG; Start 09/28/18 at 09:00 Insulin Aspart (Novolog Insulin Pen) 10 unit WITH MEALS SC Last administered on 09/27/18 17:25; Admin Dose 10 UNIT; Start 09/27/18 at 18:00 Lactulose (Enulose) 10 gm Q8 PO Last administered on 09/28/18 05:49; Admin Dose 10 GM; Start 09/27/18 at 14:00 Metformin HCl (Glucophage) 500 mg WITH BREAKFAST DINNE PO Last administered on 09/28/18 08:38; Admin Dose 500 MG; Start 09/27/18 at 18:00 Naproxen (Naprosyn) 500 mg BID PRN PO PAIN AND/OR INFLAMMATION; Start 09/27/18 at 12:30 Nitroglycerin (Nitroglycerin (Sl Tab) 0.4 Mg) 1 tab [id number] PRN SL CHEST PAIN; Start 09/27/18 at 12:30 Ticagrelor (Brilinta) 90 mg Q12 PO Last administered on 09/28/18at 08:37; Admin Dose 90 MG; Start 09/27/18 at 21:00 Tramadol HCl (Ultram) 50 mg Q6H PRN PO PAIN; Start 09/27/18 at 12:30 Diagnostic Test (Pha) (Accu-Chek) 1 ea AC MEALS AND BEDTIME XX Last administ ered on 09/28/18at 07:12; Admin Dose 1 EA; Start 09/27/18 at 17:30 Miscellaneous Information 1 ea NOTE XX ; Start 09/27/18 at 12:00 Glucose (Glutose) 15 gm Q15M PRN PO DECREASED GLUCOSE; Start 09/27/18 at 12:00 Glucose (Glutose) 22.5 gm Q15M PRN PO DECREASED GLUCOSE; Start 09/27/18 at 12:00 Dextrose (D50w Syringe) 25 ml Q15M PRN IV DECREASED GLUCOSE; Start 09/27/18 at 12:00 Dextrose (D50w Syringe) 50 ml Q15M PRN IV DECREASED GLUCOSE; Start 09/27/18 at 12:00 Glucagon (Glucagen) 1 mg Q15M PRN IM DECREASED GLUCOSE; Start 09/27/18 at 12:00 Glucose (Glutose) 15 gm Q15M PRN BUCCAL DECREASED GLUCOSE; Start 09/27/18 at 12:00 Insulin Glargine (Lantus) 20 units QHS SC Last administered on 09/27/18at 21:22; Admin Dose 20 UNITS; Start 09/27/18 at 21:00 ROGELIO ARMENTA Sep 28, 2018 10:51
--- NOTE | 2018-09-28 12:54 | PN ---
Date/Time of Note Date/Time of Note DATE: 09/28/18 TIME: 12:54 Assessment/Plan VTE Prophylaxis Risk score (from [facility])>0 risk: 2 SCD applied (from Ns): Yes Pharmacological prophylaxis: LMWH Lines/Catheters IV Catheter Type (from Nrsg): Saline Lock Urinary Cath still in place: No Assessment/Plan Hospital Course 1) arrhythmia - pacemaker to be changed per cardiology 2) diabetes - monitor blood sugar Result Diagram: 09/27/18 1038 09/27/18 1038 Results 24hrs Laboratory Tests Test 09/27/18 17:17 09/27/18 21:01 09/28/18 07:12 09/28/18 11:38 Bedside Glucose 198 160 115 127 Subjective 24 Hr Interval Summary Free Text/Dictation Currently no vibrations from pacemaker Exam/Review of Systems Exam Vitals Vital Signs Date Temp Pulse Resp B/P (MAP) Pulse Ox O2 O2 Flow FiO2 Time Delivery Rate 09/28/18 98.5 70 20 100/61 100 11:31 (74) 09/26/18 Nasal 2.0 21:50 Cannula Intake and Output 09/27/18 09/27/18 09/28/18 1515:00 23:00 07:00 IntakeIntake Total 800 ml 500 ml BalanceBalance 800 ml 500 ml Constitutional: well developed Head: normocephalic, atraumatic Neck: supple Respiratory: diminished breath sounds Cardiovascular: regular rate and rhythm Gastrointestinal: soft, non-tender Extremities: normal pulses Results Results 24hrs Laboratory Tests Test 09/27/18 17:17 09/27/18 21:01 09/28/18 07:12 09/28/18 11:38 Bedside Glucose 198 160 115 127 Medications Medication Current Medications IV Flush (NS 3 ml) 3 ml PER PROTOCOL IV ; Start 09/26/18 at 22:00 Ondansetron HCl (Zofran Inj) 4 mg Q6H PRN IV NAUSEA/VOMITING; Start 09/26/18 at 22:00 Morphine Sulfate (morphine) 2 mg Q4H PRN IV .PAIN 7-10; Start 09/26/18 at 22:00 Famotidine (Pepcid Iv) 20 mg Q12 IV Last administered on 09/28/18at 08:25; Admin Dose 20 MG; Start 09/27/18 at 09:00 Enoxaparin Sodium (Lovenox) 30 mg DAILY SC Last administered on 09/28/18 08:37; Admin Dose 30 MG; Start 09/27/18 at 09:00 Aspirin (Halfprin) 81 mg DAILY PO Last administered on 09/28/18 08:25; Admin Dose 81 MG; Start 09/28/18 at 09:00 Benazepril HCl (Lotensin) 20 mg DAILY PO Last administered on 09/28/18 08:27; Admin Dose 20 MG; Start 09/28/18 at 09:00 Carvedilol (Coreg) 25 mg BID PO Last administered on 09/28/18 08:27; Admin Dose 25 MG; Start 09/27/18 at 21:00 Digoxin (Digoxin) 0.125 mg DAILY@1300 PO Last administered on 09/27/18 14:13; Admin Dose 0.125 MG; Start 09/27/18 at 13:00 Furosemide (Lasix) 20 mg DAILY PO Last administered on 09/28/18 08:26; Admin Dose 20 MG; Start 09/28/18 at 09:00 Insulin Aspart (Novolog Insulin Pen) 10 unit WITH MEALS SC Last administered on 09/27/18 17:25; Admin Dose 10 UNIT; Start 09/27/18 at 18:00 Lactulose (Enulose) 10 gm Q8 PO Last administered on 09/28/18 05:49; Admin Dose 10 GM; Start 09/27/18 at 14:00 Metformin HCl (Glucophage) 500 mg WITH BREAKFAST DINNE PO Last administered on 09/28/18 08:38; Admin Dose 500 MG; Start 09/27/18 at 18:00 Naproxen (Naprosyn) 500 mg BID PRN PO PAIN AND/OR INFLAMMATION; Start 09/27/18 at 12:30 Nitroglycerin (Nitroglycerin (Sl Tab) 0.4 Mg) 1 tab [id number] PRN SL CHEST PAIN; Start 09/27/18 at 12:30 Ticagrelor (Brilinta) 90 mg Q12 PO Last administered on 09/28/18 08:37; Admin Dose 90 MG; Start 09/27/18 at 21:00 Tramadol HCl (Ultram) 50 mg Q6H PRN PO PAIN; Start 09/27/18 at 12:30 Diagnostic Test (Pha) (Accu-Chek) 1 ea AC MEALS AND BEDTIME XX Last administered on 09/28/18at 11:39; Admin Dose 1 EA; Start 09/27/18 at 17:30 Miscellaneous Information 1 ea NOTE XX ; Start 09/27/18 at 12:00 Glucose (Glutose) 15 gm Q15M PRN PO DECREASED GLUCOSE; Start 09/27/18 at 12:00 Glucose (Glutose) 22.5 gm Q15M PRN PO DECREASED GLUCOSE; Start 09/27/18 at 12 :00 Dextrose (D50w Syringe) 25 ml Q15M PRN IV DECREASED GLUCOSE; Start 09/27/18 at 12:00 Dextrose (D50w Syringe) 50 ml Q15M PRN IV DECREASED GLUCOSE; Start 09/27/18 at 12:00 Glucagon (Glucagen) 1 mg Q15M PRN IM DECREASED GLUCOSE; Start 09/27/18 at 12:00 Glucose (Glutose) 15 gm Q15M PRN BUCCAL DECREASED GLUCOSE; Start 09/27/18 at 12:00 Insulin Glargine (Lantus) 20 units QHS SC Last administered on 09/27/18at 21:22; Admin Dose 20 UNITS; Start 09/27/18 at 21:00 TENISHA TAMAYO Sep 28, 2018 12:54
[2018-09-28] MEDS: DIGOXIN 0.125 MG TAB PO SCH (13:15)
--- NOTE | 2018-09-28 13:55 | RADRPT ---
Echocardiogram Report Patient Name: DAVYE ROTHMANPatient ID: [id number] : 1950 (68y 1m)Study Date: 09/28/2018 11:12:15 AM Gender: MAccession #: [id number] Tech: Isaiah Jaeger [facility] Location: [address] Ref.Physician: ROGELIO WALDRON Height(Cm): BSA: Weight(Kg): Quality: AdequateAccount #: Procedures: Echocardiographic Report: Transthoracic echocardiogram with complete 2D, M-Mode, and doppler examination. Indications: Cardiomyopathy. Measurements: 2D/M Mode Doppler Measurement Value Normal Range Measurement Value Normal Range LVIDd 2D 5.8 [ 4.2 - 5.8 ] cm AV Peak German 0.9 [ 100.0 - 170.0 ] cm/sec LVIDs 2D 5.1 [ 2.5 - 4.0 ] cm AV Peak PG 3.0 [ 2.0 - 9.0 ] mmHg LVPWd 2D 0.8 [ 0.6 - 1.0 ] cm LVOT Peak German 0.5 [ 70.0 - 110.0 ] cm/sec IVSd 2D 0.8 [ 0.6 - 1.0 ] cm LVOT Peak PG 1.0 [ 2.0 - 6.0 ] mmHg AoR Diam 2D 3.3 [ 2.6 - 3.4 ] cm MV E Peak German 0.5 [ 60.0 - 130.0 ] cm/sec EDV 2D 167.0 [ 62.0 - 150.0 ] ml MV A Peak German 0.8 [ 100.0 - 120.0 ] cm/sec ESV 2D 123.0 [ 21.0 - 61.0 ] ml MV E/A 0.6 [ 0.8 - 1.5 ] ratio EF 2D 26.3 [ 52.0 - 72.0 ] percent MV Decel Time 394 [ 104 - 258 ] msec LA Dimen 2D 3.8 [ 3.0 - 4.0 ] cm Lat E` German 0.0 [ 10.0 - 15.0 ] cm/sec Lateral E/E` 11.0 [ 1.0 - 2.0 ] ratio MV E/A 0.6 [ 0.8 - 1.5 ] ratio TR Peak German 1.3 [ 100.0 - 280.0 ] cm/sec TR Peak PG 7.0 mmHg Findings: Left Ventricle: Normal left ventricular cavity size. Normal left ventricular wall thickness. Severe global left ventricular systolic dysfunction. Ejection fraction is visually estimated at 20-25 %. Tissue Doppler/Mitral Doppler indices are consistent with impaired relaxation (Stage I diastolic dysfunction). Right Ventricle: Normal right ventricular systolic function. Moderate enlargement of right ventricle. Linear artifact in right ventricle suggestive of catheter, pacer lead, or ICD lead. Left Atrium: The left atrium is normal in size. Right Atrium: The right atrium is normal in size. Mitral Valve: Mild mitral leaflet calcification. Mild mitral annular calcification. Trace mitral regurgitation. Aortic Valve: No hemodynamically significant aortic stenosis by doppler. Aortic cusps appear mildly calcified. Trace aortic valve regurgitation. Tricuspid Valve: Normal appearance of the tricuspid valve. Estimated peak PA systolic pressure 10 mmHg. There is trace tricuspid regurgitation. Pericardium: Normal pericardium with no significant pericardial effusion. Aorta: Normal aortic root. IVC: Normal size and normal respiratory collapse consistent with normal right atrial pressure. Conclusions: Normal left ventricular cavity size. Normal left ventricular wall thickness. Severe global left ventricular systolic dysfunction. Ejection fraction is visually estimated at 20-25 %. Tissue Doppler/Mitral Doppler indices are consistent with impaired relaxation (Stage I diastolic dysfunction). Mild mitral leaflet calcification. Mild mitral annular calcification. Trace mitral regurgitation. No hemodynamically significant aortic stenosis by doppler. Aortic cusps appear mildly calcified. Trace aortic valve regurgitation. Normal appearance of the tricuspid valve. Estimated peak PA systolic pressure 10 mmHg. There is trace tricuspid regurgitation. Electronically Signed By: Rogelio Waldron 2018-09-28 13:54:47 PDT
[2018-09-28] MEDS: INSULIN GLARGINE [LANTus] (100 UNITS/ML) SYG SC SCH (21:09)
[2018-09-29] VITALS (31 sets, daily range): BP systolic 93–114; BP diastolic 50–71; PULSE 52–85; RESP 16–28
[2018-09-29] MEDS: LACTULOSE 30ML CUP PO SCH ×3 (05:34→22:32)
[2018-09-29] MEDS: ACCU-CHEK XX SCH ×4 (07:00→20:24)
[2018-09-29] MEDS: metFORMIN 500 MG TAB PO SCH ×2 (08:00→17:35)
[2018-09-29] MEDS: INSULIN ASPART [NOVOLOG] 3 ML PEN SC SCH ×3 (08:00→17:35)
[2018-09-29] MEDS ORDERED: POLYMYXIN/BACITRACIN 1L IRRIG ONE (08:24)
[2018-09-29] MEDS ORDERED: LIDOCAINE 1% (MDV) 20 ML INJ ONE (08:33)
[2018-09-29] MEDS ORDERED: BUPIVACAINE 0.5% (SDV) 30 ML INJ ONE (08:33)
[2018-09-29] MEDS ORDERED: SOD CHLORIDE 0.9% 500 ML ONE (08:33)
--- NOTE | 2018-09-29 08:36 | CONS ---
Consult Date/Type/Reason Admit Date/Time Sep 28, 2018 at 12:32 Initial Consult Date Date/Time of Note DATE: 09/29/18 TIME: 08:34 Subjective NO acute events - BP stable - Gen Change planned at 9 am - leads with good fxn per check day prior. ROS: No fever, no chills, no nausea, no vomiting, no diarrhea/constipation No recent weight changes No chest pain, no PND, no orthopnea - chronic SOB No dizziness, blurred vision No thirst, no heat or cold intolerance Objective Vitals Vital Signs Date Temp Pulse Resp B/P (MAP) Pulse Ox O2 O2 Flow FiO2 Time Delivery Rate 09/29/18 98.0 74 17 93/57 (69) 95 Room Air 07:33 09/26/18 2.0 21:50 Intake and Output 09/28/18 09/28/18 09/29/18 1414:59 22:59 06:59 IntakeIntake Total 1000 ml 600 ml BalanceBalance 1000 ml 600 ml Exam General: WN/WD/NAD, AOx 3 HEENT: Unicetric/atraumatic/EOMI (follow commands) NECK: JVD elevated, no thyromegaly Lymph: no lymphadenopathy HEART: regular with no S3, II/ systolic murmur at apex LUNGS: Coarse sounds ABD: soft, NT, ND, +BS : Intact Neuro: non focal SKIN: chronic changes EXT: trace edema Results/Medications Result Diagram: 09/27/18 1038 09/27/18 1038 Results 24 hrs Laboratory Tests Test 09/28/18 11:38 09/28/18 16:29 09/28/18 20:26 09/29/18 07:42 Bedside Glucose 127 145 135 148 Home Meds Reported Medications Lactulose* (Lactulose*) 10 Gm/15 Ml Solution, 10 GM PO Q8, ML 09/16/18 Ticagrelor* (Brilinta*) 90 Mg Tablet, 90 MG PO Q12, TAB 09/16/18 Dextran 70/Hypromellose/Pf (ARTIFICIAL TEARS DROPS) 1 Each Droperette, 1 EACH OP TID PRN for DRY EYES 09/16/18 Ketotifen Fumarate (KETOTIFEN FUMARATE) 5 Ml Drops, 1 ML OP QID PRN for ITCHING, BOTTLE 09/16/18 Tramadol Hcl* (Ultram*) 50 Mg Tablet, 50 MG PO Q6H PRN for PAIN, TAB 09/16/18 Insulin Glargine,Hum.rec.anlog (Basaglar Kwikpen U-100) 100 Unit/1 Ml Insuln.pen, 20 UNIT SC QHS, EA 11/14/17 Insulin Aspart* (Novolog Insulin Pen*) 100 Unit/Ml Soln, 10-11 UNIT SC WITH MEALS, EA 11/14/17 Benazepril Hcl* (Benazepril Hcl*) 20 Mg Tablet, 20 MG PO DAILY, #30 TAB 11/14/17 Nitroglycerin* (Nitrostat*) 0.4 Mg Tab.subl, 0.4 MG SL Q5MIN PRN for CHEST PAIN, BOTTLE 11/14/17 Furosemide* (Lasix*) 20 Mg Tablet, 20 MG PO DAILY, TAB 11/14/17 Omeprazole* (Omeprazole*) 20 Mg Capsule.dr, 20 MG PO DAILY, #30 CAP 11/14/17 Digoxin* (Lanoxin*) 0.125 Mg Tablet, 0.125 MG PO DAILY, TAB 11/14/17 Naproxen* (Naprosyn*) 500 Mg Tablet, 500 MG PO BID PRN for PAIN AND/OR INFLAMMATION, TAB 11/14/17 Aspirin (Low Dose Aspirin) 81 Mg Tablet.dr, 81 MG PO DAILY, #30 TAB 11/14/17 Carvedilol* (Carvedilol*) 25 Mg Tablet, 25 MG PO BID, #60 TAB 11/14/17 Metformin Hcl* (Metformin Hcl*) 500 Mg Tablet, 500 MG PO WITH BREAKFAST DINNE, #60 TAB 11/14/17 Medications Current Medications IV Flush (NS 3 ml) 3 ml PER PROTOCOL IV ; Start 09/26/18 at 22:00 Ondansetron HCl (Zofran Inj) 4 mg Q6H PRN IV NAUSEA/VOMITING; Start 09/26/18 at 22:00 Morphine Sulfate (morphine) 2 mg Q4H PRN IV .PAIN 7-10; Start 09/26/18 at 22:00 Famotidine (Pepcid Iv) 20 mg Q12 IV Last administered on 09/28/18at 20:29; Admin Dose 20 MG; Start 09/27/18 at 09:00 Enoxaparin Sodium (Lovenox) 30 mg DAILY SC Last administered on 09/28/18 08:37; Admin Dose 30 MG; Start 09/27/18 at 09:00 Aspirin (Halfprin) 81 mg DAILY PO Last administered on 09/28/18 08:25; Admin Dose 81 MG; Start 09/28/18 at 09:00 Benazepril HCl (Lotensin) 20 mg DAILY PO Last administered on 09/28/18 08:27; Admin Dose 20 MG; Start 09/28/18 at 09:00 Carvedilol (Coreg) 25 mg BID PO Last administered on 09/28/18 20:30; Admin Dose 25 MG; Start 09/27/18 at 21:00 Digoxin (Digoxin) 0.125 mg DAILY@1300 PO Last administered on 09/28/18 13:15; Admin Dose 0.125 MG; Start 09/27/18 at 13:00 Furosemide (Lasix) 20 mg DAILY PO Last administered on 09/28/18 08:26; Admin Dose 20 MG; Start 09/28/18 at 09:00 Insulin Aspart (Novolog Insulin Pen) 10 unit WITH MEALS SC Last administered on 09/28/18 17:27; Admin Dose 10 UNIT; Start 09/27/18 at 18:00 Lactulose (Enulose) 10 gm Q8 PO Last administered on 09/29/18 05:34; Admin Dose 10 GM; Start 09/27/18 at 14:00 Metformin HCl (Glucophage) 500 mg WITH BREAKFAST DINNE PO Last administered on 09/28/18 08:38; Admin Dose 500 MG; Start 09/27/18 at 18:00 Naproxen (Naprosyn) 500 mg BID PRN PO PAIN AND/OR INFLAMMATION; Start 09/27/18 at 12:30 Nitroglycerin (Nitroglycerin (Sl Tab) 0.4 Mg) 1 tab [id number] PRN SL CHEST PAIN; Start 09/27/18 at 12:30 Ticagrelor (Brilinta) 90 mg Q12 PO Last administered on 09/28/18 21:10; Admin Dose 90 MG; Start 09/27/18 at 21:00 Tramadol HCl (Ultram) 50 mg Q6H PRN PO PAIN; Start 09/27/18 at 12:30 Diagnostic Test (Pha) (Accu-Chek) 1 ea AC MEALS AND BEDTIME XX Last administered on 09/28/18at 16:29; Admin Dose 1 EA; Start 09/27/18 at 17:30 Miscellaneous Information 1 ea NOTE XX ; Start 09/27/18 at 12:00 Glucose (Glutose) 15 gm Q15M PRN PO DECREASED GLUCOSE; Start 09/27/18 at 12:00 Glucose (Glutose) 22.5 gm Q15M PRN PO DECREASED GLUCOSE; Start 09/27/18 at 12:00 Dextrose (D50w Syringe) 25 ml Q15M PRN IV DECREASED GLUCOSE; Start 09/27/18 at 12:00 Dextrose (D50w Syringe) 50 ml Q15M PRN IV DECREASED GLUCOSE; Start 09/27/18 at 12:00 Glucagon (Glucagen) 1 mg Q15M PRN IM DECREASED GLUCOSE; Start 09/27/18 at 12:00 Glucose (Glutose) 15 gm Q15M PRN BUCCAL DECREASED GLUCOSE; Start 09/27/18 at 12:00 Insulin Glargine (Lantus) 20 units QHS SC Last administered on 09/28/18at 21:09; Admin Dose 20 UNITS; Start 09/27/18 at 21:00 Assessment/Plan Hospital Course (Demo Recall) 1. ICD and EOL- awaiting generator change today at 9 am - risk/benefit s/alternatives outlined - agreed to proceed. 2.cardiomyopathy with low EF - BiV in place. 3.HTN - well Rx now. 4.chest pain-resolved. Neg trops R/o [place]. 5.DM - on meds. VANE OSUNA MD Sep 29, 2018 08:36
--- NOTE | 2018-09-29 09:04 | PREAC ---
Date/Time of Note Date/Time of Note DATE: 09/29/18 TIME: 09:03 Anesthesia Eval and Record Evaluation Time Pre-Procedure Interview DATE: 09/29/18 TIME: 09:03 Age 68 Sex male NPO: 8 hrs Preoperative diagnosis pacemaker battery low Planned procedure pacemaker generator change Past Medical History Past Medical History: Includes Cardio: HTN, Dyslipidemia, CAD, PPM/AICD, CHF Endo: Diabetes Surgery & Anesthesia Issues No known issue Meds Anticoagulation: No Beta Benita within 24 hr: No Reason Beta Benita not given: Pt. not on B-Benita Reported Medications Lactulose* (Lactulose*) 10 Gm/15 Ml Solution, 10 GM PO Q8, ML 09/16/18 Ticagrelor* (Brilinta*) 90 Mg Tablet, 90 MG PO Q12, TAB 09/16/18 Dextran 70/Hypromellose/Pf (ARTIFICIAL TEARS DROPS) 1 Each Droperette, 1 EACH OP TID PRN for DRY EYES 09/16/18 Ketotifen Fumarate (KETOTIFEN FUMARATE) 5 Ml Drops, 1 ML OP QID PRN for ITCHING, BOTTLE 09/16/18 Tramadol Hcl* (Ultram*) 50 Mg Tablet, 50 MG PO Q6H PRN for PAIN, TAB 09/16/18 Insulin Glargine,Hum.rec.anlog (Basaglar Kwikpen U-100) 100 Unit/1 Ml Insuln.pen, 20 UNIT SC QHS, EA 11/14/17 Insulin Aspart* (Novolog Insulin Pen*) 100 Unit/Ml Soln, 10-11 UNIT SC WITH MEALS, EA 11/14/17 Benazepril Hcl* (Benazepril Hcl*) 20 Mg Tablet, 20 MG PO DAILY, #30 TAB 11/14/17 Nitroglycerin* (Nitrostat*) 0.4 Mg Tab.subl, 0.4 MG SL Q5MIN PRN for CHEST PAIN, BOTTLE 11/14/17 Furosemide* (Lasix*) 20 Mg Tablet, 20 MG PO DAILY, TAB 11/14/17 Omeprazole* (Omeprazole*) 20 Mg Capsule.dr, 20 MG PO DAILY, #30 CAP 11/14/17 Digoxin* (Lanoxin*) 0.125 Mg Tablet, 0.125 MG PO DAILY, TAB 11/14/17 Naproxen* (Naprosyn*) 500 Mg Tablet, 500 MG PO BID PRN for PAIN AND/OR INFLAMMATION, TAB 11/14/17 Aspirin (Low Dose Aspirin) 81 Mg Tablet.dr, 81 MG PO DAILY, #30 TAB 11/14/17 Carvedilol* (Carvedilol*) 25 Mg Tablet, 25 MG PO BID, #60 TAB 11/14/17 Metformin Hcl* (Metformin Hcl*) 500 Mg Tablet, 500 MG PO WITH BREAKFAST DINNE, #60 TAB 11/14/17 Current Medications IV Flush (NS 3 ml) 3 ml PER PROTOCOL IV ; Start 09/26/18 at 22:00 Ondansetron HCl (Zofran Inj) 4 mg Q6H PRN IV NAUSEA/VOMITING; Start 09/26/18 at 22:00 Morphine Sulfate (morphine) 2 mg Q4H PRN IV .PAIN 7-10; Start 09/26/18 at 22:00 Famotidine (Pepcid Iv) 20 mg Q12 IV Last administered on 09/28/18 20:29; Admin Dose 20 MG; Start 09/27/18 at 09:00 Enoxaparin Sodium (Lovenox) 30 mg DAILY SC Last administered on 09/28/18 08:37; Admin Dose 30 MG; Start 09/27/18 at 09:00 Aspirin (Halfprin) 81 mg DAILY PO Last administered on 09/28/18 08:25; Admin Dose 81 MG; Start 09/28/18 at 09:00 Benazepril HCl (Lotensin) 20 mg DAILY PO Last administered on 09/28/18 08:27; Admin Dose 20 MG; Start 09/28/18 at 09:00 Carvedilol (Coreg) 25 mg BID PO Last administered on 09/28/18 20:30; Admin Dose 25 MG; Start 09/27/18 at 21:00 Digoxin (Digoxin) 0.125 mg DAILY@1300 PO Last administered on 09/28/18 13:15; Admin Dose 0.125 MG; Start 09/27/18 at 13:00 Furosemide (Lasix) 20 mg DAILY PO Last administered on 09/28/18 08:26; Admin Dose 20 MG; Start 09/28/18 at 09:00 Insulin Aspart (Novolog Insulin Pen) 10 unit WITH MEALS SC Last administered on 09/28/18 17:27; Admin Dose 10 UNIT; Start 09/27/18 at 18:00 Lactulose (Enulose) 10 gm Q8 PO Last administered on 09/29/18at 05:34; Admin Dose 10 GM; Start 09/27/18 at 14:00 Metformin HCl (Glucophage) 500 mg WITH BREAKFAST DINNE PO Last administered on 09/28/18at 08:38; Admin Dose 500 MG; Start 09/27/18 at 18:00 Naproxen (Naprosyn) 500 mg BID PRN PO PAIN AND/OR INFLAMMATION; Start 09/27/18 at 12:30 Nitroglycerin (Nitroglycerin (Sl Tab) 0.4 Mg) 1 tab [id number] PRN SL CHEST PAIN; Start 09/27/18 at 12:30 Ticagrelor (Brilinta) 90 mg Q12 PO Last administered on 09/28/18at 21:10; Admin Dose 90 MG; Start 09/27/18 at 21:00 Tramadol HCl (Ultram) 50 mg Q6H PRN PO PAIN; Start 09/27/18 at 12:30 Diagnostic Test (Pha) (Accu-Chek) 1 ea AC MEALS AND BEDTIME XX Last administered on 09/28/18at 16:29; Admin Dose 1 EA; Start 09/27/18 at 17:30 Miscellaneous Information 1 ea NOTE XX ; Start 09/27/18 at 12:00 Glucose (Glutose) 15 gm Q15M PRN PO DECREASED GLUCOSE; Start 09/27/18 at 12:00 Glucose (Glutose) 22.5 gm Q15M PRN PO DECREASED GLUCOSE; Start 09/27/18 at 12:00 Dextrose (D50w Syringe) 25 ml Q15M PRN IV DECREASED GLUCOSE; Start 09/27/18 at 12:00 Dextrose (D50w Syringe) 50 ml Q15M PRN IV DECREASED GLUCOSE; Start 09/27/18 at 12:00 Glucagon (Glucagen) 1 mg Q15M PRN IM DECREASED GLUCOSE; Start 09/27/18 at 12:00 Glucose (Glutose) 15 gm Q15M PRN BUCCAL DECREASED GLUCOSE; Start 09/27/18 at 12:00 Insulin Glargine (Lantus) 20 units QHS SC Last administered on 09/28/18at 21:09; Admin Dose 20 UNITS; Start 09/27/18 at 21:00 Meds reviewed: Yes Allergies Coded Allergies: No Known Allergy (Unverified , 09/26/18) Allergies Reviewed: Yes Labs/Studies Labs Reviewed: Reviewed by anesthesiologist Result Diagram: 09/27/18 1038 09/27/18 1038 test: Negative Studies: ECG Pre-procedure Exam Last vitals Vital Signs Date Temp Pulse Resp B/P (MAP) Pulse Ox O2 O2 Flow FiO2 Time Delivery Rate 09/29/18 98.0 74 17 93/57 (69) 95 Room Air 07:33 09/26/18 2.0 21:50 Airway: Adequate mouth opening, Adequate thyromental dist Mallampati: Mallampati II Teeth: Normal Lung: Normal Heart: Normal ASA Physical Status ASA physical status: 3 Emergency: None Planned Anesthetic General/MAC: Mask Pre-operative Attestations Prior to commencing anesthesia and surgery, the patient was re-evaluated, there was verification of: *The patient's identity *The results of appropriate recent lab work and preoperative vital signs *The above evaluation not changing prior to induction *Anesthetic plan, risk benefits, alternative and complications discussed with p atient/family; questions answered; patient/family understands, accepts and wishes to proceed. SOURAV YE Sep 29, 2018 09:04
[2018-09-29] MEDS ORDERED: PROPOFOL 20 ML ONE (09:10)
[2018-09-29] MEDS ORDERED: FENTAnyl 50 MCG/ML VIAL IV PRN (09:30)
[2018-09-29] MEDS ORDERED: FENTAnyl 50 MCG/ML VIAL ONE (09:35)
[2018-09-29] MEDS ORDERED: CEFAZOLIN 1 GM/50 ML (PMX) 50 ML IVPB ONE (09:36)
--- NOTE | 2018-09-29 10:00 | SIPON ---
Date/Time of Note Date/Time of Note DATE: 09/29/18 TIME: 09:58 Operative Report Preoperative Diagnosis CMY, Isch Cmy EOL BiV -ICD - s/p gen change Sj JJude BIV at 60s Postoperative Diagnosis CMY, Isch Cmy EOL BiV -ICD - s/p gen change Sj JJude BIV at 60s Operation/Procedure Performed gen change + fluoro Surgeon see signature line distribution center assistant none Anesthesia: MAC Estimated blood loss: minimal Transfusion Required none Specimen Old device # [id number] Grafts/Implants none Complications none VANE OSUNA MD Sep 29, 2018 10:00
[2018-09-29] MEDS ORDERED: morphine 2 MG INJ IV PRN (11:00)
[2018-09-29] MEDS ORDERED: HYDROCODONE/APAP (5/325) TAB GTB PRN (11:00)
[2018-09-29] MEDS: ENOXAPARIN 30 MG/0.3 ML SYG SC SCH (12:30)
--- NOTE | 2018-09-29 12:32 | PN ---
Date/Time of Note Date/Time of Note DATE: 09/29/18 TIME: 12:30 Assessment/Plan VTE Prophylaxis Risk score (from Nsg)>0 risk: 2 SCD applied (from Nsg): Yes Lines/Catheters IV Catheter Type (from Nrsg): Peripheral IV Urinary Cath still in place: No Assessment/Plan Assessment/Plan 1) arrhythmia - pacemaker changed per cardiology today - vu 2) diabetes - monitor blood sugar HTN hX WA SP Cardiac stents Result Diagram: 09/27/18 1038 09/27/18 1038 Results 24hrs Laboratory Tests Test 09/28/18 16:29 09/28/18 20:26 09/29/18 07:42 Bedside Glucose 145 135 148 Exam/Review of Systems Exam Vitals Vital Signs Date Temp Pulse Resp B/P (MAP) Pulse Ox O2 O2 Flow FiO2 Time Delivery Rate 09/29/18 97.9 65 18 107/67 98 Room Air 12:03 (80) 09/26/18 2.0 21:50 Intake and Output 09/28/18 09/28/18 09/29/18 1515:00 23:00 07:00 IntakeIntake Total 1000 ml 600 ml BalanceBalance 1000 ml 600 ml Results Results 24hrs Laboratory Tests Test 09/28/18 16:29 09/28/18 20:26 09/29/18 07:42 Bedside Glucose 145 135 148 Medications Medication Current Medications IV Flush (NS 3 ml) 3 ml PER PROTOCOL IV ; Start 09/26/18 at 22:00 Ondansetron HCl (Zofran Inj) 4 mg Q6H PRN IV NAUSEA/VOMITING; Start 09/26/18 at 22:00 Famotidine (Pepcid Iv) 20 mg Q12 IV Last administered on 09/28/18at 20:29; Admin Dose 20 MG; Start 09/27/18 at 09:00 Enoxaparin Sodium (Lovenox) 30 mg DAILY SC Last administered on 09/28/18at 08:37; Admin Dose 30 MG; Start 09/27/18 at 09:00 Aspirin (Halfprin) 81 mg DAILY PO Last administered on 09/28/18 08:25; Admin D ose 81 MG; Start 09/28/18 at 09:00 Benazepril HCl (Lotensin) 20 mg DAILY PO Last administered on 09/28/18at 08:27; Admin Dose 20 MG; Start 09/28/18 at 09:00 Carvedilol (Coreg) 25 mg BID PO Last administered on 09/28/18 20:30; Admin Dose 25 MG; Start 09/27/18 at 21:00 Digoxin (Digoxin) 0.125 mg DAILY@1300 PO Last administered on 09/28/18 13:15; Admin Dose 0.125 MG; Start 09/27/18 at 13:00 Furosemide (Lasix) 20 mg DAILY PO Last administered on 09/28/18 08:26; Admin Dose 20 MG; Start 09/28/18 at 09:00 Insulin Aspart (Novolog Insulin Pen) 10 unit WITH MEALS SC Last administered on 09/28/18 17:27; Admin Dose 10 UNIT; Start 09/27/18 at 18:00 Lactulose (Enulose) 10 gm Q8 PO Last administered on 09/29/18 05:34; Admin Dose 10 GM; Start 09/27/18 at 14:00 Metformin HCl (Glucophage) 500 mg WITH BREAKFAST DINNE PO Last administered on 09/28/18at 08:38; Admin Dose 500 MG; Start 09/27/18 at 18:00 Naproxen (Naprosyn) 500 mg BID PRN PO PAIN AND/OR INFLAMMATION; Start 09/27/18 at 12:30 Nitroglycerin (Nitroglycerin (Sl Tab) 0.4 Mg) 1 tab [id number] PRN SL CHEST PAIN; Start 09/27/18 at 12:30 Ticagrelor (Brilinta) 90 mg Q12 PO Last administered on 09/28/18at 21:10; Admin Dose 90 MG; Start 09/27/18 at 21:00 Tramadol HCl (Ultram) 50 mg Q6H PRN PO PAIN; Start 09/27/18 at 12:30 Diagnostic Test (Pha) (Accu-Chek) 1 ea AC MEALS AND BEDTIME XX Last administered on 09/28/18 16:29; Admin Dose 1 EA; Start 09/27/18 at 17:30 Miscellaneous Information 1 ea NOTE XX ; Start 09/27/18 at 12:00 Glucose (Glutose) 15 gm Q15M PRN PO DECREASED GLUCOSE; Start 09/27/18 at 12:00 Glucose (Glutose) 22.5 gm Q15M PRN PO DECREASED GLUCOSE; Start 09/27/18 at 12:00 Dextrose (D50w Syringe) 25 ml Q15M PRN IV DECREASED GLUCOSE; Start 09/27/18 at 12:00 Dextrose (D50w Syringe) 50 ml Q15M PRN IV DECREASED GLUCOSE; Start 09/27/18 at 12:00 Glucagon (Glucagen) 1 mg Q15M PRN IM DECREASED GLUCOSE; Start 09/27/18 at 12:00 Glucose (Glutose) 15 gm Q15M PRN BUCCAL DECREASED GLUCOSE; Start 09/27/18 at 12:00 Insulin Glargine (Lantus) 20 units QHS SC Last administered on 09/28/18at 21:09; Admin Dose 20 UNITS; Start 09/27/18 at 21:00 Fentanyl (Sublimaze) 25 mcg PACU ORDER PRN IV MILD PAIN 1-3; Start 09/29/18 at 09:30; Stop 09/29/18 at 16:00 Cefazolin Sodium 50 ml @ 100 mls/hr Q8 IVPB ; Start 09/29/18 at 14:00 Morphine Sulfate (morphine) 2 mg Q3 PRN IV SEVERE PAIN LEVEL 7-10; Start 09/29/18 at 11:00 Acetaminophen/ Hydrocodone Bitart ([place] (5/325)) 1 tab Q4H PRN GTB MODERATE PAIN LEVEL 4-6; Start 09/29/18 at 11:00 BILL ARVIZU Sep 29, 2018 12:32
[2018-09-29] MEDS: BENAZEPRIL 20 MG TAB PO SCH (12:59)
[2018-09-29] MEDS: DIGOXIN 0.125 MG TAB PO SCH (13:01)
[2018-09-29] MEDS: FAMOTIDINE 20 MG INJ IV SCH ×2 (13:01→20:27)
[2018-09-29] MEDS: ASPIRIN (EC) 81 MG TAB PO SCH (13:03)
[2018-09-29] MEDS: FUROSEMIDE 20 MG TAB PO SCH (13:03)
--- NOTE | 2018-09-29 13:27 | SP ---
DATE OF PROCEDURE: REFERRING PHYSICIAN: Ekaterina Tamayo MD REASON FOR EVALUATION: Half-life of ICD, initial indication of implant ischemic cardiomyopathy, ejec tion fraction less than 35%. The patient had a biventricular ICD implanted more than 12 years ago in 2011, now better with end of life and requires change. PROCEDURES PERFORMED: 1. Fluoroscopy with interpretation. 2. Biventricular ICD change. 3. VT/VF induction was induced. DEVICE INFORMATION: The new device is [employer] AQU[employer] LIFEGUARD-D Assurity [id number], serial #[id number]. The atrial lead is Tendril [id number] 52 cm, serial # [id number], implanted in 09/02/2011. RV lead is a Durat a 7121, 58 cm serial # [id number], implanted 09/05/2011. LV lead is [employer] QuickFlex [id number] 86 cm se rial # [id number], implanted 08/15/2018. Chronic threshold R-wave is 3 millivolts. RV is greater bogdan n 12 millivolts. Lead impedance in the atrial lead is 410. RV lead is 510. LV lead is 1050. High voltage impedance 46 ohms. Threshold atrial is 0.62 volts, 0.5 msec. RV lead is 0.65 volts, 0.5 mse c. LV lead is 0.75 volts, 0.5 msec. Initial setting is DDD 60 with 3 zones, VT zone at 160 was urvashi tored, VT zone is 181 and VF zone is 220 with maximal shocks with ATP during charging. DESCRIPTION OF PROCEDURE: The informed consent was obtained. The patient was brought to the cath la b in a fasting condition. He received preoperative antibiotics. Left side of the chest was prepped and draped in sterile fashion. Anesthesiologist supervised airway and sedation. A 1% lidocaine was used for local analgesia. Using #10 scalpel, a 3 cm incision was made and using cautery and blunt di ssection, the device was removed from the pocket. The leads were detached from the old generator and attached to the new generator and tested with appropriate function. The pocket was irrigated with a ntibiotic solution. Entire system was placed in the pocket. The skin was closed with multiple layer s of 2-0 Vicryl sutures. Steri-Strips were placed on top of the incision. The patient tolerated the procedure well. He will be observed overnight. He will have 1 week of antibiotics and close follow up. Dictated By: VANE OSUNA MD ML/NTS Conf#: [id number] DID#: [id number] CC: EKATERINA TAMAYO MD;*End*
[2018-09-29] MEDS: TICAGRELOR 90 MG TABLET PO SCH ×2 (13:54→20:34)
[2018-09-29] MEDS: CEFAZOLIN 1 GM/50 ML (PMX) 50 ML IVPB SCH ×2 (13:57→22:32)
--- NOTE | 2018-09-29 15:33 | RADRPT ---
Vent Rate: 60 bpm RR Interval: 1000 msec [place] Interval: 115 msec QRS Duration: 159 msec QT Interval: 499 msec QTC Interval: 499 msec P-R-T [place]: [id number] - 4 - 190 degrees Atrial-ventricular dual-paced rhythm Biventricular paced rhythm...non-simultaneous bi-vent pacing Electronically Signed By: Cachorro Trinh
[2018-09-29] MEDS: INSULIN GLARGINE [LANTus] (100 UNITS/ML) SYG SC SCH (20:34)
[2018-09-30] VITALS (11 sets, daily range): BP systolic 102–114; BP diastolic 55–62; PULSE 65–96; RESP 16–18
[2018-09-30] MEDS: LACTULOSE 30ML CUP PO SCH ×3 (05:24→22:40)
[2018-09-30] MEDS: CEFAZOLIN 1 GM/50 ML (PMX) 50 ML IVPB SCH ×3 (05:24→22:40)
[2018-09-30] MEDS: ACCU-CHEK XX SCH ×4 (06:00→20:47)
--- NOTE | 2018-09-30 07:23 | PAC ---
Date/Time of Note Date/Time of Note DATE: 09/30/18 TIME: 07:23 Post-Anesthesia Notes Post-Anesthesia Note Last documented vital signs Vital Signs Date Temp Pulse Resp B/P (MAP) Pulse Ox O2 O2 Flow FiO2 Time Delivery Rate 09/30/18 98.2 73 18 102/62 98 Room Air 07:09 (75) 09/26/18 2.0 21:50 Activity: WNL Respiratory function: WNL Cardiovascular function: WNL Mental status: Baseline Pain reasonably controlled: Yes Hydration appropriate: Yes Nausea/Vomiting absent: Yes SOURAV YE Sep 30, 2018 07:23
[2018-09-30] MEDS: INSULIN ASPART [NOVOLOG] 3 ML PEN SC SCH ×3 (08:00→17:21)
[2018-09-30] MEDS: FUROSEMIDE 20 MG TAB PO SCH (08:18)
[2018-09-30] MEDS: metFORMIN 500 MG TAB PO SCH ×2 (08:18→17:20)
[2018-09-30] MEDS: BENAZEPRIL 20 MG TAB PO SCH (08:19)
[2018-09-30] MEDS: TICAGRELOR 90 MG TABLET PO SCH ×2 (08:21→20:47)
[2018-09-30] MEDS: FAMOTIDINE 20 MG INJ IV SCH ×2 (08:21→20:42)
[2018-09-30] MEDS: ASPIRIN (EC) 81 MG TAB PO SCH (08:21)
[2018-09-30] MEDS: ENOXAPARIN 30 MG/0.3 ML SYG SC SCH (09:00)
[2018-09-30] MEDS: DIGOXIN 0.125 MG TAB PO SCH (13:31)
--- NOTE | 2018-09-30 16:02 | CONS ---
Assessment/Plan Assessment/Plan Hospital Course (Demo Recall) IMP: 1. ICD and EOL=awaiting generator change by primary EP DR conn. POD#1 s/p generator change 2.cardiomyopathy with low EF 3.HTN 4.chest pain-resolved. Neg trops 5.DM 6. cardiomyopathy-EF 20-25% by echo this admit Recc: -Tele -serial ecg's -Continue ACEI/BB -Continue brilinta/asa -to have interrogation of ICD today given wilmarley diaphragmatic pacing Consultation Date/Type/Reason Admit Date/Time Sep 28, 2018 at 12:32 Initial Consult Date 09/30/18 Type of Consult Cardiology Reason for Consultation HTN Requesting Provider: AURELIO HORNE Date/Time of Note DATE: 09/30/18 TIME: 15:55 Exam/Review of Systems Vital Signs Vitals Vital Signs Date Temp Pulse Resp B/P (MAP) Pulse Ox O2 O2 Flow FiO2 Time Delivery Rate 09/30/18 98.7 76 18 104/59 98 Room Air 15:08 (74) 09/26/18 2.0 21:50 Intake and Output 09/29/18 09/29/18 09/30/18 1515:00 23:00 07:00 IntakeIntake Total 850 ml 900 ml BalanceBalance 850 ml 900 ml Exam Exam Review of Systems: CONSTITUTIONAL: No fevers, chills. PULMONARY: No sob CARDIOVASCULAR: No chest pain/palpitations GASTROINTESTINAL: No nausea/vomiting. GENITOURINARY: No hematuria/dysuria. MUSCULOSKELETAL: No myagias/arthalgias. PSYCHIATRIC: The patient denies depression. NEUROLOGIC: No weakness Constitutional: alert Psych: no complaints Head: normocephalic ENMT: mucosa pink and moist Neck: supple, jvd Respiratory: clear to auscultation Cardiovascular: regular rate and rhythm Gastrointestinal: soft, non-tender Musculoskeletal: muscle tone Extremities: edema (none) Neurological: other (No focal deficoits) Labs Result Diagram: 09/27/18 1038 09/27/18 1038 Results 24hrs Laboratory Tests Test 09/29/18 17:31 09/29/18 20:24 09/30/18 08:16 09/30/18 11:53 Bedside Glucose 83 181 107 119 Medications Medications Current Medications IV Flush (NS 3 ml) 3 ml PER PROTOCOL IV ; Start 09/26/18 at 22:00 Ondansetron HCl (Zofran Inj) 4 mg Q6H PRN IV NAUSEA/VOMITING; Start 09/26/18 at 22:00 Famotidine (Pepcid Iv) 20 mg Q12 IV Last administered on 09/30/18 08:21; Admin Dose 20 MG; Start 09/27/18 at 09:00 Enoxaparin Sodium (Lovenox) 30 mg DAILY SC Last administered on 09/28/18 08:37; Admin Dose 30 MG; Start 09/27/18 at 09:00 Aspirin (Halfprin) 81 mg DAILY PO Last administered on 09/30/18 08:21; Admin Dose 81 MG; Start 09/28/18 at 09:00 Benazepril HCl (Lotensin) 20 mg DAILY PO Last administered on 09/30/18 08:19; Admin Dose 20 MG; Start 09/28/18 at 09:00 Carvedilol (Coreg) 25 mg BID PO Last administered on 09/30/18 08:21; Admin Dose 25 MG; Start 09/27/18 at 21:00 Digoxin (Digoxin) 0.125 mg DAILY@1300 PO Last administered on 09/30/18 13:31; Admin Dose 0.125 MG; Start 09/27/18 at 13:00 Furosemide (Lasix) 20 mg DAILY PO Last administered on 09/30/18 08:18; Admin Dose 20 MG; Start 09/28/18 at 09:00 Insulin Aspart (Novolog Insulin Pen) 10 unit WITH MEALS SC Last administered on 09/30/18 11:56; Admin Dose 10 UNIT; Start 09/27/18 at 18:00 Lactulose (Enulose) 10 gm Q8 PO Last administered on 09/30/18 05:24; Admin Dose 10 GM; Start 09/27/18 at 14:00 Metformin HCl (Glucophage) 500 mg WITH BREAKFAST DINNE PO Last administered on 09/30/18 08:18; Admin Dose 500 MG; Start 09/27/18 at 18:00 Naproxen (Naprosyn) 500 mg BID PRN PO PAIN AND/OR INFLAMMATION; Start 09/27/18 at 12:30 Nitroglycerin (Nitroglycerin (Sl Tab) 0.4 Mg) 1 tab [id number] PRN SL CHEST PAIN; Start 09/27/18 at 12:30 Ticagrelor (Brilinta) 90 mg Q12 PO Last administered on 09/30/18at 08:21; Admin Dose 90 MG; Start 09/27/18 at 21:00 Tramadol HCl (Ultram) 50 mg Q6H PRN PO PAIN; Start 09/27/18 at 12:30 Diagnostic Test (Pha) (Accu-Chek) 1 ea AC MEALS AND BEDTIME XX Last administered on 09/30/18at 11:59; Admin Dose 1 EA; Start 09/27/18 at 17:30 Miscellaneous Information 1 ea NOTE XX ; Start 09/27/18 at 12:00 Glucose (Glutose) 15 gm Q15M PRN PO DECREASED GLUCOSE; Start 09/27/18 at 12:00 Glucose (Glutose) 22.5 gm Q15M PRN PO DECREASED GLUCOSE; Start 09/27/18 at 12:00 Dextrose (D50w Syringe) 25 ml Q15M PRN IV DECREASED GLUCOSE; Start 09/27/18 at 12:00 Dextrose (D50w Syringe) 50 ml Q15M PRN IV DECREASED GLUCOSE; Start 09/27/18 at 12:00 Glucagon (Glucagen) 1 mg Q15M PRN IM DECREASED GLUCOSE; Start 09/27/18 at 12:00 Glucose (Glutose) 15 gm Q15M PRN BUCCAL DECREASED GLUCOSE; Start 09/27/18 at 12:00 Insulin Glargine (Lantus) 20 units QHS SC Last administered on 09/29/18at 20:34; Admin Dose 20 UNITS; Start 09/27/18 at 21:00 Cefazolin Sodium 50 ml @ 100 mls/hr Q8 IVPB Last administered on 09/30/18at 13:31; Admin Dose 100 MLS/HR; Start 09/29/18 at 14:00 Morphine Sulfate (morphine) 2 mg Q3 PRN IV SEVERE PAIN LEVEL 7-10; Start 09/29/18 at 11:00 Acetaminophen/ Hydrocodone Bitart ([place] (5/325)) 1 tab Q4H PRN GTB MODERATE PAIN LEVEL 4-6; Start 09/29/18 at 11:00 ROGELIO ARMENTA Sep 30, 2018 16:02
--- NOTE | 2018-09-30 16:51 | PN ---
Date/Time of Note Date/Time of Note DATE: 09/30/18 TIME: 16:48 Assessment/Plan VTE Prophylaxis Risk score (from Nsg)>0 risk: 2 SCD applied (from Nsg): Yes Lines/Catheters IV Catheter Type (from Nrsg): Saline Lock Urinary Cath still in place: No Assessment/Plan Assessment/Plan 1) arrhythmia - pacemaker changed per cardiology today - vu 2) diabetes - monitor blood sugar HTN hX PR SP Cardiac stents Result Diagram: 09/27/18 1038 09/27/18 1038 Results 24hrs Laboratory Tests Test 09/29/18 17:31 09/29/18 20:24 09/30/18 08:16 09/30/18 11:53 Bedside Glucose 83 181 107 119 Subjective 24 Hr Interval Summary Free Text/Dictation c/o incisional pain Eyes: no complaints ENT: no complaints Respiratory: no complaints Cardiovascular: other (c/o incisional pain) Gastrointestinal: no complaints Genitourinary: no complaints Musculoskeletal: no complaints Skin: no complaints Neurologic: no complaints Lymphatic: no complaints Psychological: nl mood/affect, anxiety Exam/Review of Systems Exam Vitals Vital Signs Date Temp Pulse Resp B/P (MAP) Pulse Ox O2 O2 Flow FiO2 Time Delivery Rate 09/30/18 75 16:15 09/30/18 98.7 18 104/59 98 Room Air 15:08 (74) 09/26/18 2.0 21:50 Intake and Output 09/29/18 09/29/18 09/30/18 1515:00 23:00 07:00 IntakeIntake Total 850 ml 900 ml BalanceBalance 850 ml 900 ml Constitutional: alert, well developed Psych: nl mood/affect Head: atraumatic Eyes: nl lids ENMT: nl external ears & nose Neck: non-tender Respiratory: diminished breath sounds Cardiovascular: nl pulses, other Gastrointestinal: soft, non-tender Musculoskeletal: nl extremities to inspection Extremities: normal pulses Neurological: nl mental status, nl speech Lymph: nontender Results Results 24hrs Laboratory Tests Test 09/29/18 17:31 09/29/18 20:24 09/30/18 08:16 09/30/18 11:53 Bedside Glucose 83 181 107 119 Medications Medication Current Medications IV Flush (NS 3 ml) 3 ml PER PROTOCOL IV ; Start 09/26/18 at 22:00 Ondansetron HCl (Zofran Inj) 4 mg Q6H PRN IV NAUSEA/VOMITING; Start 09/26/18 at 22:00 Famotidine (Pepcid Iv) 20 mg Q12 IV Last administered on 09/30/18 08:21; Admin Dose 20 MG; Start 09/27/18 at 09:00 Enoxaparin Sodium (Lovenox) 30 mg DAILY SC Last administered on 09/28/18 08:37; Admin Dose 30 MG; Start 09/27/18 at 09:00 Aspirin (Halfprin) 81 mg DAILY PO Last administered on 09/30/18 08:21; Admin Dose 81 MG; Start 09/28/18 at 09:00 Benazepril HCl (Lotensin) 20 mg DAILY PO Last administered on 09/30/18 08:19; Admin Dose 20 MG; Start 09/28/18 at 09:00 Carvedilol (Coreg) 25 mg BID PO Last administered on 09/30/18 08:21; Admin Dose 25 MG; Start 09/27/18 at 21:00 Digoxin (Digoxin) 0.125 mg DAILY@1300 PO Last administered on 09/30/18 13:31; Admin Dose 0.125 MG; Start 09/27/18 at 13:00 Furosemide (Lasix) 20 mg DAILY PO Last administered on 09/30/18 08:18; Admin Dose 20 MG; Start 09/28/18 at 09:00 Insulin Aspart (Novolog Insulin Pen) 10 unit WITH MEALS SC Last administered on 09/30/18 11:56; Admin Dose 10 UNIT; Start 09/27/18 at 18:00 Lactulose (Enulose) 10 gm Q8 PO Last administered on 09/30/18 05:24; Admin Dose 10 GM; Start 09/27/18 at 14:00 Metformin HCl (Glucophage) 500 mg WITH BREAKFAST DINNE PO Last administered on 09/30/18 08:18; Admin Dose 500 MG; Start 09/27/18 at 18:00 Naproxen (Naprosyn) 500 mg BID PRN PO PAIN AND/OR INFLAMMATION; Start 09/27/18 at 12:30 Nitroglycerin (Nitroglycerin (Sl Tab) 0.4 Mg) 1 tab [id number] PRN SL CHEST PAIN; Start 09/27/18 at 12:30 Ticagrelor (Brilinta) 90 mg Q12 PO Last administered on 09/30/18at 08:21; Admin Dose 90 MG; Start 09/27/18 at 21:00 Tramadol HCl (Ultram) 50 mg Q6H PRN PO PAIN; Start 09/27/18 at 12:30 Diagnostic Test (Pha) (Accu-Chek) 1 ea AC MEALS AND BEDTIME XX Last administered on 09/30/18at 11:59; Admin Dose 1 EA; Start 09/27/18 at 17:30 Miscellaneous Information 1 ea NOTE XX ; Start 09/27/18 at 12:00 Glucose (Glutose) 15 gm Q15M PRN PO DECREASED GLUCOSE; Start 09/27/18 at 12:00 Glucose (Glutose) 22.5 gm Q15M PRN PO DECREASED GLUCOSE; Start 09/27/18 at 12:00 Dextrose (D50w Syringe) 25 ml Q15M PRN IV DECREASED GLUCOSE; Start 09/27/18 at 12:00 Dextrose (D50w Syringe) 50 ml Q15M PRN IV DECREASED GLUCOSE; Start 09/27/18 at 12:00 Glucagon (Glucagen) 1 mg Q15M PRN IM DECREASED GLUCOSE; Start 09/27/18 at 12:00 Glucose (Glutose) 15 gm Q15M PRN BUCCAL DECREASED GLUCOSE; Start 09/27/18 at 12:00 Insulin Glargine (Lantus) 20 units QHS SC Last administered on 09/29/18at 20:34; Admin Dose 20 UNITS; Start 09/27/18 at 21:00 Cefazolin Sodium 50 ml @ 100 mls/hr Q8 IVPB Last administered on 09/30/18at 13:31; Admin Dose 100 MLS/HR; Start 09/29/18 at 14:00 Morphine Sulfate (morphine) 2 mg Q3 PRN IV SEVERE PAIN LEVEL 7-10; Start 09/29/18 at 11:00 Acetaminophen/ Hydrocodone Bitart ([place] (5/325)) 1 tab Q4H PRN GTB MODERATE PAIN LEVEL 4-6; Start 09/29/18 at 11:00 BILL ARVIZU Sep 30, 2018 16:51
[2018-09-30] MEDS: INSULIN GLARGINE [LANTus] (100 UNITS/ML) SYG SC SCH (20:47)
[2018-10-01] VITALS (11 sets, daily range): BP systolic 96–117; BP diastolic 56–63; PULSE 62–83; RESP 16–18
[2018-10-01] MEDS: LACTULOSE 30ML CUP PO SCH ×3 (05:07→22:00)
[2018-10-01] MEDS: CEFAZOLIN 1 GM/50 ML (PMX) 50 ML IVPB SCH ×3 (05:07→22:33)
[2018-10-01] MEDS: ACCU-CHEK XX SCH ×4 (06:09→21:00)
[2018-10-01] MEDS: metFORMIN 500 MG TAB PO SCH ×3 (07:44→17:21)
[2018-10-01] MEDS: INSULIN ASPART [NOVOLOG] 3 ML PEN SC SCH ×3 (07:50→17:17)
[2018-10-01] MEDS: ASPIRIN (EC) 81 MG TAB PO SCH (08:35)
[2018-10-01] MEDS: FAMOTIDINE 20 MG INJ IV SCH (08:35)
[2018-10-01] MEDS: FUROSEMIDE 20 MG TAB PO SCH (08:36)
[2018-10-01] MEDS: BENAZEPRIL 20 MG TAB PO SCH (08:36)
[2018-10-01] MEDS: TICAGRELOR 90 MG TABLET PO SCH ×2 (08:42→20:57)
[2018-10-01] MEDS: ENOXAPARIN 30 MG/0.3 ML SYG SC SCH (08:45)
[2018-10-01] MEDS: DIGOXIN 0.125 MG TAB PO SCH (12:48)
--- NOTE | 2018-10-01 14:04 | CONS ---
Assessment/Plan Assessment/Plan Hospital Course (Demo Recall) IMP: 1. ICD and EOL=awaiting generator change by primary EP DR conn. POD#1 s/p generator change 2.cardiomyopathy with low EF 3.HTN 4.chest pain-resolved. Neg trops 5.DM 6. cardiomyopathy-EF 20-25% by echo this admit Recc: -Tele -serial ecg's -Continue ACEI/BB -Continue brilinta/asa -Still awaiting interrogation of ICD today given likley diaphragmatic pacing Consultation Date/Type/Reason Admit Date/Time Sep 28, 2018 at 12:32 Initial Consult Date 09/30/18 Type of Consult Cardiology Reason for Consultation PPM Requesting Provider: AURELIO HORNE Date/Time of Note DATE: 10/01/18 TIME: 14:00 Exam/Review of Systems Vital Signs Vitals Vital Signs Date Temp Pulse Resp B/P (MAP) Pulse Ox O2 O2 Flow FiO2 Time Delivery Rate 10/01/18 98.7 62 16 104/59 98 Room Air 11:29 (74) Intake and Output 09/30/18 09/30/18 10/01/18 1515:00 23:00 07:00 IntakeIntake Total 50 ml 900 ml 900 ml BalanceBalance 50 ml 900 ml 900 ml Exam Exam Review of Systems: CONSTITUTIONAL: No fevers, chills. PULMONARY: No sob CARDIOVASCULAR: No chest pain/palpitations GASTROINTESTINAL: No nausea/vomiting. GENITOURINARY: No hematuria/dysuria. MUSCULOSKELETAL: No myagias/arthalgias. PSYCHIATRIC: The patient denies depression. NEUROLOGIC: No weakness Constitutional: alert Psych: no complaints Head: normocephalic ENMT: mucosa pink and moist Neck: supple, jvd (9 cm water) Respiratory: diminished breath sounds Cardiovascular: regular rate and rhythm Gastrointestinal: soft Musculoskeletal: muscle tone (normal) Extremities: edema (none) Neurological: other (No focal deficits) Labs Result Diagram: 10/01/18 0538 10/01/18 0538 Results 24hrs Laboratory Tests Test 09/30/18 17:19 09/30/18 20:33 10/01/18 05:38 10/01/18 07:38 Bedside Glucose 112 209 108 White Blood Count 7.6 Red Blood Count 3.87 L Hemoglobin 11.9 L Hematocrit 35.3 L Mean Corpuscular 91.2 Volume Mean Corpuscular 30.7 Hemoglobin Mean Corpuscular 33.7 Hemoglobin Concent Red Cell 13.8 Distribution Width Platelet Count 196 Mean Platelet Volume 10.6 H Immature 0.400 Granulocytes % Neutrophils % 54.4 Lymphocytes % 29.2 Monocytes % 8.9 Eosinophils % 6.3 Basophils % 0.8 Nucleated Red Blood 0.0 Cells % Immature 0.030 Granulocytes # Neutrophils # 4.1 Lymphocytes # 2.2 Monocytes # 0.7 Eosinophils # 0.5 Basophils # 0.1 Nucleated Red Blood 0.0 Cells # Sodium Level 140 Potassium Level 3.9 Chloride Level 104 Carbon Dioxide Level 26 Anion Gap 10 Blood Urea Nitrogen 26 H Creatinine 1.03 Est Glomerular > 60 Filtrat Rate mL/min Glucose Level 118 Calcium Level 9.6 Test 10/01/18 11:34 10/01/18 11:54 Bedside Glucose 69 L 71 Medications Medications Current Medications IV Flush (NS 3 ml) 3 ml PER PROTOCOL IV ; Start 09/26/18 at 22:00 Ondansetron HCl (Zofran Inj) 4 mg Q6H PRN IV NAUSEA/VOMITING; Start 09/26/18 at 22:00 Famotidine (Pepcid Iv) 20 mg Q12 IV Last administered on 10/01/18 08:35; Admin Dose 20 MG; Start 09/27/18 at 09:00 Enoxaparin Sodium (Lovenox) 30 mg DAILY SC Last administered on 10/01/18at 08:45; Admin Dose 30 MG; Start 09/27/18 at 09:00 Aspirin (Halfprin) 81 mg DAILY PO Last administered on 10/01/18 08:35; Admin Dose 81 MG; Start 09/28/18 at 09:00 Benazepril HCl (Lotensin) 20 mg DAILY PO Last administered on 10/01/18 08:36; Admin Dose 20 MG; Start 09/28/18 at 09:00 Carvedilol (Coreg) 25 mg BID PO Last administered on 10/01/18 08:37; Admin Dose 25 MG; Start 09/27/18 at 21:00 Digoxin (Digoxin) 0.125 mg DAILY@1300 PO Last administered on 10/01/18at 12:48; Admin Dose 0.125 MG; Start 09/27/18 at 13:00 Furosemide (Lasix) 20 mg DAILY PO Last administered on 10/01/18 08:36; Admin Dose 20 MG; Start 09/28/18 at 09:00 Insulin Aspart (Novolog Insulin Pen) 10 unit WITH MEALS SC Last administered on 10/01/18at 07:50; Admin Dose 10 UNIT; Start 09/27/18 at 18:00 Lactulose (Enulose) 10 gm Q8 PO Last administered on 09/30/18at 22:40; Admin Dose 10 GM; Start 09/27/18 at 14:00 Metformin HCl (Glucophage) 500 mg WITH BREAKFAST DINNE PO Last administered on 10/01/18 07:44; Admin Dose 500 MG; Start 09/27/18 at 18:00 Naproxen (Naprosyn) 500 mg BID PRN PO PAIN AND/OR INFLAMMATION; Start 09/27/18 at 12:30 Nitroglycerin (Nitroglycerin (Sl Tab) 0.4 Mg) 1 tab [id number] PRN SL CHEST PAIN; Start 09/27/18 at 12:30 Ticagrelor (Brilinta) 90 mg Q12 PO Last administered on 10/01/18at 08:42; Admin Dose 90 MG; Start 09/27/18 at 21:00 Tramadol HCl (Ultram) 50 mg Q6H PRN PO PAIN; Start 09/27/18 at 12:30 Diagnostic Test (Pha) (Accu-Chek) 1 ea AC MEALS AND BEDTIME XX Last administered on 10/01/18at 11:36; Admin Dose 1 EA; Start 09/27/18 at 17:30 Miscellaneous Information 1 ea NOTE XX ; Start 09/27/18 at 12:00 Glucose (Glutose) 15 gm Q15M PRN PO DECREASED GLUCOSE; Start 09/27/18 at 12:00 Glucose (Glutose) 22.5 gm Q15M PRN PO DECREASED GLUCOSE; Start 09/27/18 at 12:00 Dextrose (D50w Syringe) 25 ml Q15M PRN IV DECREASED GLUCOSE; Start 09/27/18 at 12:00 Dextrose (D50w Syringe) 50 ml Q15M PRN IV DECREASED GLUCOSE; Start 09/27/18 at 12:00 Glucagon (Glucagen) 1 mg Q15M PRN IM DECREASED GLUCOSE; Start 09/27/18 at 12:00 Glucose (Glutose) 15 gm Q15M PRN BUCCAL DECREASED GLUCOSE; Start 09/27/18 at 12:00 Insulin Glargine (Lantus) 20 units QHS SC Last administered on 09/30/18at 20:47; Admin Dose 20 UNITS; Start 09/27/18 at 21:00 Cefazolin Sodium 50 ml @ 100 mls/hr Q8 IVPB Last administered on 10/01/18at 05:07; Admin Dose 100 MLS/HR; Start 09/29/18 at 14:00 Morphine Sulfate (morphine) 2 mg Q3 PRN IV SEVERE PAIN LEVEL 7-10; Start 09/29/18 at 11:00 Acetaminophen/ Hydrocodone Bitart ([place] (5/325)) 1 tab Q4H PRN GTB MODERATE PAIN LEVEL 4-6 Last administered on 09/30/18at 18:38; Admin Dose 1 TAB; Start 09/29/18 at 11:00 ROGELIO ARMENTA Oct 01, 2018 14:04
--- NOTE | 2018-10-01 20:02 | PN ---
Date/Time of Note Date/Time of Note DATE: 10/01/18 TIME: 19:40 Assessment/Plan VTE Prophylaxis Risk score (from Ns)>0 risk: 4 SCD applied (from [facility] [place]): Yes SCD contraindicated: other Pharmacological prophylaxis: other Pharm contraindication: other Lines/Catheters [facility]from [facility] Saline Lock Urinary Cath still in place: No Assessment/Plan Assessment/Plan 1) arrhythmia - pacemaker changed per cardiology - pending AICD check - stablle 2) diabetes - monitor blood sugar 3) HTN 4) hX IN 5) SP Cardiac stents Patient seen in collaboration with Dr Llanos. Result Diagram: 10/01/18 0538 10/01/18 0538 Results 24hrs Laboratory Tests Test 09/30/18 20:33 10/01/18 05:38 10/01/18 07:38 10/01/18 11:34 Bedside Glucose 209 108 69 L White Blood Count 7.6 Red Blood Count 3.87 L Hemoglobin 11.9 L Hematocrit 35.3 L Mean Corpuscular 91.2 Volume Mean Corpuscular 30.7 Hemoglobin Mean Corpuscular 33.7 Hemoglobin Concent Red Cell 13.8 Distribution Width Platelet Count 196 Mean Platelet Volume 10.6 H Immature 0.400 Granulocytes % Neutrophils % 54.4 Lymphocytes % 29.2 Monocytes % 8.9 Eosinophils % 6.3 Basophils % 0.8 Nucleated Red Blood 0.0 Cells % Immature 0.030 Granulocytes # Neutrophils # 4.1 Lymphocytes # 2.2 Monocytes # 0.7 Eosinophils # 0.5 Basophils # 0.1 Nucleated Red Blood 0.0 Cells # Sodium Level 140 Potassium Level 3.9 Chloride Level 104 Carbon Dioxide Level 26 Anion Gap 10 Blood Urea Nitrogen 26 H Creatinine 1.03 Est Glomerular > 60 Filtrat Rate mL/min Glucose Level 118 Calcium Level 9.6 Test 10/01/18 11:54 10/01/18 17:14 Bedside Glucose 71 104 Subjective 24 Hr Interval Summary Free Text/Dictation Pending AICD check by company . dw staff Eyes: no complaints ENT: no complaints Respiratory: no complaints Cardiovascular: palpitations (2/2 AICD ) Gastrointestinal: no complaints Genitourinary: no complaints Musculoskeletal: no complaints Skin: no complaints Neurologic: no complaints Endocrine: no complaints Lymphatic: no complaints Psychological: nl mood/affect Immunologic: no complaints Exam/Review of Systems Exam Vitals Vital Signs Date Temp Pulse Resp B/P (MAP) Pulse Ox O2 O2 Flow FiO2 Time Delivery Rate 10/01/18 81 16:05 10/01/18 98.0 18 112/61 98 Room Air 15:21 (78) Intake and Output 09/30/18 09/30/18 10/01/18 1515:00 23:00 07:00 IntakeIntake Total 50 ml 900 ml 900 ml BalanceBalance 50 ml 900 ml 900 ml Constitutional: alert, oriented, well developed Psych: nl mood/affect Eyes: nl lids, nl sclera ENMT: nl external ears & nose Neck: non-tender Respiratory: clear to auscultation, diminished breath sounds Cardiovascular: nl pulses, other (S1S2; SP AICD placement) Gastrointestinal: soft, non-tender Musculoskeletal: nl extremities to inspection Extremities: normal pulses Neurological: nl mental status, nl speech Skin: nl turgor Lymph: nontender Results Results 24hrs Laboratory Tests Test 09/30/18 20:33 10/01/18 05:38 10/01/18 07:38 10/01/18 11:34 Bedside Glucose 209 108 69 L White Blood Count 7.6 Red Blood Count 3.87 L Hemoglobin 11.9 L Hematocrit 35.3 L Mean Corpuscular 91.2 Volume Mean Corpuscular 30.7 Hemoglobin Mean Corpuscular 33.7 Hemoglobin Concent Red Cell 13.8 Distribution Width Platelet Count 196 Mean Platelet Volume 10.6 H Immature 0.400 Granulocytes % Neutrophils % 54.4 Lymphocytes % 29.2 Monocytes % 8.9 Eosinophils % 6.3 Basophils % 0.8 Nucleated Red Blood 0.0 Cells % Immature 0.030 Granulocytes # Neutrophils # 4.1 Lymphocytes # 2.2 Monocytes # 0.7 Eosinophils # 0.5 Basophils # 0.1 Nucleated Red Blood 0.0 Cells # Sodium Level 140 Potassium Level 3.9 Chloride Level 104 Carbon Dioxide Level 26 Anion Gap 10 Blood Urea Nitrogen 26 H Creatinine 1.03 Est Glomerular > 60 Filtrat Rate mL/min Glucose Level 118 Calcium Level 9.6 Test 10/01/18 11:54 10/01/18 17:14 Bedside Glucose 71 104 Medications Medication Current Medications IV Flush (NS 3 ml) 3 ml PER PROTOCOL IV ; Start 09/26/18 at 22:00 Ondansetron HCl (Zofran Inj) 4 mg Q6H PRN IV NAUSEA/VOMITING; Start 09/26/18 at 22:00 Enoxaparin Sodium (Lovenox) 30 mg DAILY SC Last administered on 10/01/18 08:45; Admin Dose 30 MG; Start 09/27/18 at 09:00 Aspirin (Halfprin) 81 mg DAILY PO Last administered on 10/01/18 08:35; Admin Dose 81 MG; Start 09/28/18 at 09:00 Benazepril HCl (Lotensin) 20 mg DAILY PO Last administered on 10/01/18 08:36; Admin Dose 20 MG; Start 09/28/18 at 09:00 Carvedilol (Coreg) 25 mg BID PO Last administered on 10/01/18 08:37; Admin Dose 25 MG; Start 09/27/18 at 21:00 Digoxin (Digoxin) 0.125 mg DAILY@1300 PO Last administered on 10/01/18 12:48; Admin Dose 0.125 MG; Start 09/27/18 at 13:00 Furosemide (Lasix) 20 mg DAILY PO Last administered on 10/01/18 08:36; Admin Dose 20 MG; Start 09/28/18 at 09:00 Insulin Aspart (Novolog Insulin Pen) 10 unit WITH MEALS SC Last administered on 10/01/18 17:17; Admin Dose 10 UNIT; Start 09/27/18 at 18:00 Lactulose (Enulose) 10 gm Q8 PO Last administered on 09/30/18 22:40; Admin Dose 10 GM; Start 09/27/18 at 14:00 Metformin HCl (Glucophage) 500 mg WITH BREAKFAST DINNE PO Last administered on 10/01/18 07:44; Admin Dose 500 MG; Start 09/27/18 at 18:00 Naproxen (Naprosyn) 500 mg BID PRN PO PAIN AND/OR INFLAMMATION; Start 09/27/18 at 12:30 Nitroglycerin (Nitroglycerin (Sl Tab) 0.4 Mg) 1 tab [id number] PRN SL CHEST PAIN; Start 09/27/18 at 12:30 Ticagrelor (Brilinta) 90 mg Q12 PO Last administered on 10/01/18 08:42; Admin Dose 90 MG; Start 09/27/18 at 21:00 Tramadol HCl (Ultram) 50 mg Q6H PRN PO PAIN; Start 09/27/18 at 12:30 Diagnostic Test (Pha) (Accu-Chek) 1 ea AC MEALS AND BEDTIME XX Last administered on 10/01/18at 17:15; Admin Dose 1 EA; Start 09/27/18 at 17:30 Miscellaneous Information 1 ea NOTE XX ; Start 09/27/18 at 12:00 Glucose (Glutose) 15 gm Q15M PRN PO DECREASED GLUCOSE; Start 09/27/18 at 12:00 Glucose (Glutose) 22.5 gm Q15M PRN PO DECREASED GLUCOSE; Start 09/27/18 at 12:00 Dextrose (D50w Syringe) 25 ml Q15M PRN IV DECREASED GLUCOSE; Start 09/27/18 at 12:00 Dextrose (D50w Syringe) 50 ml Q15M PRN IV DECREASED GLUCOSE; Start 09/27/18 at 12:00 Glucagon (Glucagen) 1 mg Q15M PRN IM DECREASED GLUCOSE; Start 09/27/18 at 12:00 Glucose (Glutose) 15 gm Q15M PRN BUCCAL DECREASED GLUCOSE; Start 09/27/18 at 12:00 Insulin Glargine (Lantus) 20 units QHS SC Last administered on 09/30/18at 20:47; Admin Dose 20 UNITS; Start 09/27/18 at 21:00 Cefazolin Sodium 50 ml @ 100 mls/hr Q8 IVPB Last administered on 10/01/18at 14:26; Admin Dose 100 MLS/HR; Start 09/29/18 at 14:00 Morphine Sulfate (morphine) 2 mg Q3 PRN IV SEVERE PAIN LEVEL 7-10; Start 09/29/18 at 11:00 Acetaminophen/ Hydrocodone Bitart ([place] (5/325)) 1 tab Q4H PRN GTB MODERATE PAIN LEVEL 4-6 Last administered on 09/30/18at 18:38; Admin Dose 1 TAB; Start 09/29/18 at 11:00 Famotidine (Pepcid) 20 mg Q12 PO ; Start 10/01/18 at 21:00 BILL ARVIZU Oct 01, 2018 19:50
[2018-10-01] MEDS: FAMOTIDINE 20 MG TAB PO SCH (20:54)
[2018-10-01] MEDS: INSULIN GLARGINE [LANTus] (100 UNITS/ML) SYG SC SCH (20:57)
[2018-10-02] VITALS (8 sets, daily range): BP systolic 102–107; BP diastolic 55–63; PULSE 66–80; RESP 16–18
[2018-10-02] MEDS: CEFAZOLIN 1 GM/50 ML (PMX) 50 ML IVPB SCH ×2 (05:23→14:04)
[2018-10-02] MEDS: LACTULOSE 30ML CUP PO SCH ×2 (05:25→14:06)
[2018-10-02] MEDS: ACCU-CHEK XX SCH ×2 (07:23→11:31)
[2018-10-02] MEDS: metFORMIN 500 MG TAB PO SCH (07:41)
[2018-10-02] MEDS: INSULIN ASPART [NOVOLOG] 3 ML PEN SC SCH ×2 (07:45→11:41)
[2018-10-02] MEDS: ASPIRIN (EC) 81 MG TAB PO SCH (08:09)
[2018-10-02] MEDS: FAMOTIDINE 20 MG TAB PO SCH (08:09)
[2018-10-02] MEDS: FUROSEMIDE 20 MG TAB PO SCH (08:09)
[2018-10-02] MEDS: BENAZEPRIL 20 MG TAB PO SCH (08:10)
[2018-10-02] MEDS: TICAGRELOR 90 MG TABLET PO SCH (08:13)
[2018-10-02] MEDS: DIGOXIN 0.125 MG TAB PO SCH (12:47)
--- NOTE | 2018-10-02 13:56 | CONS ---
Assessment/Plan Assessment/Plan Hospital Course (Demo Recall) IMP: 1. ICD and EOL=awaiting generator change by primary EP DR conn. Post-op s/p generator change. Now s/p interrogation with change in output to stop diaphragmatic paceing/PNS 2.cardiomyopathy with low EF 3.HTN 4.chest pain-resolved. Neg trops 5.DM 6. cardiomyopathy-EF 20-25% by echo this admit Recc: -Tele -serial ecg's -Continue ACEI/BB -Continue brilinta/asa -ok for d/c with 2 additional days of abx prophylaxis Consultation Date/Type/Reason Admit Date/Time Sep 28, 2018 at 12:32 Initial Consult Date 09/30/18 Type of Consult Cardiology Reason for Consultation PPM Requesting Provider: AURELIO HORNE Date/Time of Note DATE: 10/02/18 TIME: 13:51 Exam/Review of Systems Vital Signs Vitals Vital Signs Date Temp Pulse Resp B/P (MAP) Pulse Ox O2 O2 Flow FiO2 Time Delivery Rate 10/02/18 66 12:11 10/02/18 98.3 18 107/57 99 11:22 (74) 10/02/18 Room Air 05:32 Intake and Output 10/01/18 10/01/18 10/02/18 1515:00 23:00 07:00 IntakeIntake Total 360 ml 640 ml 200 ml BalanceBalance 360 ml 640 ml 200 ml Exam Exam Review of Systems: CONSTITUTIONAL: No fevers, chills. PULMONARY: No sob CARDIOVASCULAR: No chest pain/palpitations GASTROINTESTINAL: No nausea/vomiting. GENITOURINARY: No hematuria/dysuria. MUSCULOSKELETAL: No myagias/arthalgias. PSYCHIATRIC: The patient denies depression. NEUROLOGIC: No weakness Constitutional: alert Psych: no complaints Head: normocephalic ENMT: mucosa pink and moist Neck: supple, jvd (9 cm water) Respiratory: diminished breath sounds Cardiovascular: regular rate and rhythm Gastrointestinal: soft, non-tender Musculoskeletal: muscle tone (normal) Extremities: edema (none) Neurological: other (No focal deficits) Labs Result Diagram: 10/01/18 0538 10/01/18 0538 Results 24hrs Laboratory Tests Test 10/01/18 17:14 10/01/18 20:52 10/02/18 03:15 10/02/18 07:23 Bedside Glucose 104 90 100 103 Test 10/02/18 11:31 Bedside Glucose 139 Medications Medications Current Medications IV Flush (NS 3 ml) 3 ml PER PROTOCOL IV ; Start 09/26/18 at 22:00 Ondansetron HCl (Zofran Inj) 4 mg Q6H PRN IV NAUSEA/VOMITING; Start 09/26/18 at 22:00 Enoxaparin Sodium (Lovenox) 30 mg DAILY SC Last administered on 10/01/18 08:45; Admin Dose 30 MG; Start 09/27/18 at 09:00 Aspirin (Halfprin) 81 mg DAILY PO Last administered on 10/02/18 08:09; Admin Dose 81 MG; Start 09/28/18 at 09:00 Benazepril HCl (Lotensin) 20 mg DAILY PO Last administered on 10/02/18 08:10; Admin Dose 20 MG; Start 09/28/18 at 09:00 Carvedilol (Coreg) 25 mg BID PO Last administered on 10/02/18 08:10; Admin Dose 25 MG; Start 09/27/18 at 21:00 Digoxin (Digoxin) 0.125 mg DAILY@1300 PO Last administered on 10/02/18 12:47; Admin Dose 0.125 MG; Start 09/27/18 at 13:00 Furosemide (Lasix) 20 mg DAILY PO Last administered on 10/02/18 08:09; Admin Dose 20 MG; Start 09/28/18 at 09:00 Insulin Aspart (Novolog Insulin Pen) 10 unit WITH MEALS SC Last administered on 10/02/18 11:41; Admin Dose 10 UNIT; Start 09/27/18 at 18:00 Lactulose (Enulose) 10 gm Q8 PO Last administered on 09/30/18 22:40; Admin Dose 10 GM; Start 09/27/18 at 14:00 Metformin HCl (Glucophage) 500 mg WITH BREAKFAST DINNE PO Last administered on 10/02/18 07:41; Admin Dose 500 MG; Start 09/27/18 at 18:00 Naproxen (Naprosyn) 500 mg BID PRN PO PAIN AND/OR INFLAMMATION; Start 09/27/18 at 12:30 Nitroglycerin (Nitroglycerin (Sl Tab) 0.4 Mg) 1 tab [id number] PRN SL CHEST PAIN; Start 09/27/18 at 12:30 Ticagrelor (Brilinta) 90 mg Q12 PO Last administered on 10/02/18at 08:13; Admin Dose 90 MG; Start 09/27/18 at 21:00 Tramadol HCl (Ultram) 50 mg Q6H PRN PO PAIN; Start 09/27/18 at 12:30 Diagnostic Test (Pha) (Accu-Chek) 1 ea AC MEALS AND BEDTIME XX Last administered on 10/02/18at 11:31; Admin Dose 1 EA; Start 09/27/18 at 17:30 Miscellaneous Information 1 ea NOTE XX ; Start 09/27/18 at 12:00 Glucose (Glutose) 15 gm Q15M PRN PO DECREASED GLUCOSE; Start 09/27/18 at 12:00 Glucose (Glutose) 22.5 gm Q15M PRN PO DECREASED GLUCOSE; Start 09/27/18 at 12:00 Dextrose (D50w Syringe) 25 ml Q15M PRN IV DECREASED GLUCOSE; Start 09/27/18 at 12:00 Dextrose (D50w Syringe) 50 ml Q15M PRN IV DECREASED GLUCOSE; Start 09/27/18 at 12:00 Glucagon (Glucagen) 1 mg Q15M PRN IM DECREASED GLUCOSE; Start 09/27/18 at 12:00 Glucose (Glutose) 15 gm Q15M PRN BUCCAL DECREASED GLUCOSE; Start 09/27/18 at 12:00 Insulin Glargine (Lantus) 20 units QHS SC Last administered on 10/01/18at 20:57; Admin Dose 20 UNITS; Start 09/27/18 at 21:00 Cefazolin Sodium 50 ml @ 100 mls/hr Q8 IVPB Last administered on 10/02/18at 05:23; Admin Dose 100 MLS/HR; Start 09/29/18 at 14:00 Morphine Sulfate (morphine) 2 mg Q3 PRN IV SEVERE PAIN LEVEL 7-10; Start 09/29/18 at 11:00 Acetaminophen/ Hydrocodone Bitart (Shubuta (5/325)) 1 tab Q4H PRN GTB MODERATE PAIN LEVEL 4-6 Last administered on 09/30/18at 18:38; Admin Dose 1 TAB; Start 09/29/18 at 11:00 Famotidine (Pepcid) 20 mg Q12 PO Last administered on 10/02/18at 08:09; Admin Dose 20 MG; Start 10/01/18 at 21:00 ROGELIO ARMENTA Oct 02, 2018 13:56
--- NOTE | 2018-10-02 14:10 | PDOCDIS ---
Discharge Instructions CONDITION [id number] Patient Condition: [id number] Stable HOME CARE INSTRUCTIONS: [id number] Diet Instructions: [id number] Low Fat /Cholesterol ACTIVITY: [id number] Activity Restrictions: [id number] Slowly Increase Activity Rest between Activity Avoid heavy lifting Do not Drive Do not operate Machinery Do not operate Power Tool Avoid Heavy Housework [id number] Bathing Restrictions: Kiodl6s Sponge Bath FOLLOW UP/APPOINTMENTS Follow-up Plan FU with PMD x 1 week Fu with stretching machine tender frame as recommended Call 911 or go the nearest hospital if symptoms get worse- patient verbalized understanding dc instructions Dw Dr Llanos/staff BILL ARVIZU Oct 02, 2018 14:10
[2018-10-02] MEDS: ENOXAPARIN 30 MG/0.3 ML SYG SC SCH (14:16)
[2018-10-02] MEDS ORDERED: CEPH-443 PO (14:21)
== END 2018-10-02 15:22 | disposition home or self-care (01) | DRG 245 ==
LOC: E/R 16:10 → 6WM 21:18 → OBSVTOIN 09-28 12:32
PROVIDERS: ADMIT Internal Medicine; ATTEND Internal Medicine
PROC: 0JH609Z Insertion of Cardiac Resynchronization Defibrillator Pulse Generator into Chest Subcutaneous Tissue and Fascia, Open Approach (ICD-10-PCS; principal; 2018-09-29 09:00)
PROC: 0JPT0PZ Removal of Cardiac Rhythm Related Device from Trunk Subcutaneous Tissue and Fascia, Open Approach (ICD-10-PCS; 2018-09-29 09:00)
DX: Z45.02 Encounter for adjustment and management of automatic implantable cardiac defibrillator (principal); I49.9 Cardiac arrhythmia, unspecified; I10 Essential (primary) hypertension; E78.5 Hyperlipidemia, unspecified; E11.9 Type 2 diabetes mellitus without complications; D64.9 Anemia, unspecified; R07.9 Chest pain, unspecified; I25.5 Ischemic cardiomyopathy; I25.10 Atherosclerotic heart disease of native coronary artery without angina pectoris; I25.2 Old myocardial infarction; Z95.5 Presence of coronary angioplasty implant and graft
CPT/HCPCS: 33249; 36415; 71045; 76000; 80048; 80053; 82550; 82553; 82962; 83036; 83735; 84484; 85025; 85610; 85730; 93005; 93306; G0378; C1882; J0690; J1650; J1815; J3010; J7040